=== PATIENT | female | born 1975 | race African-American/Black ===

== ENCOUNTER 2022-11-29 09:42 | Outpatient (CLI) | payer BC, SELFPAY ==
[2022-11-29 18:46] LABS: Basophils Percent Auto 0.7 % (0.2-1.2); Eosinophils Absolute Auto 0.2 K/mm3 (0-0.3); Eosinophils Percent Auto 2.8 % (0-4.4); Immature Granulocyte Absolute 0.01 K/mm3 (0.00-0.031); Immature Granulocyte Percent A 0.2 % (0-0.5); Lymphocytes Absolute Auto 1.52 K/mm3 (0.9-3.2); Lymphocytes Percent Auto 28.4 % (18.3-44.2); Mean Corpuscular HGB Conc 33.3 g/dl (32-36); Mean Corpuscular Hemoglobin 28.6 pg (26-34); Mean Corpuscular Volume 85.7 fl (80-100); Monocytes Absolute Auto 0.6 K/mm3 (0.1-0.6); Monocytes Percent Auto 10.8 % (2.6-8.5); Neutrophils Absolute Auto 3.1 K/mm3 (1.3-6.7); Neutrophils Percent Auto 57.1 % (45.5-73.1); Platelet Count Result 248 k/mm3 (150-375); Red Cell Distribution Width 12.6 % (11.5-14.5); White Blood Count 5.4 K/mm3 (4.5-10.0)
[2022-11-29 19:00] LABS: Alanine Aminotransferase 33 U/L (6-35); Albumin Level 3.9 g/dL (3.5-5.1); Alkaline Phosphatase 64 U/L (38-126); Anion Gap 1 mmol/L (8-16); Aspartate Amino Transferase 41 U/L (14-36); Bilirubin,Total 0.8 mg/dL (0.2-1.3); Blood Urea Nitrogen 10 mg/dL (7-17); Calcium 8.6 mg/dL (8.4-10.2); Carbon Dioxide 35 mmol/L (22-30); Chloride 102 mmol/L (98-107); Cholesterol 117 mg/dL (0-200); Estimated Glomerular Filt Rate > 60; Glucose 85 mg/dL (65-110); HDL Direct 52 mg/dL; Potassium 3.4 mmol/L (3.4-5.0); Sodium 138 mmol/L (137-145); Triglycerides 93 mg/dL (<150)
[2022-11-29 19:11] LABS: LDL Cholesterol Direct 37 mg/dL
[2022-11-29 19:33] LABS: Vitamin D 25 Hydroxy 44.4 ng/mL
== END 2022-11-29 09:43 | disposition home or self-care (01) ==
LOC: ANHGOSHLAB 09:44
PROVIDERS: PCP Family Medicine; Visit Provider Nurse Practitioner Family
DX: Z00.00 Encounter for general adult medical examination without abnormal findings (principal); I10 Essential (primary) hypertension; E55.9 Vitamin D deficiency, unspecified
CPT/HCPCS: 36415; 80053; 80061; 82306; 84443; 85025

== ENCOUNTER 2024-06-28 08:53 | Outpatient (CLI) | payer BC, SELFPAY ==
[2024-06-28 11:21] LABS: Basophils Percent Auto 0.7 % (0.2-1.2); Eosinophils Absolute Auto 0.2 K/mm3 (0-0.3); Eosinophils Percent Auto 3.6 % (0-4.4); Hematocrit 43.4 % (37.0-47.0); Hemoglobin 14.9 g/dL (12.0-15.0); Immature Granulocyte Absolute 0.01 K/mm3 (0.00-0.031); Immature Granulocyte Percent A 0.2 % (0-0.5); Lymphocytes Absolute Auto 1.58 K/mm3 (0.9-3.2); Lymphocytes Percent Auto 35.3 % (18.3-44.2); Mean Corpuscular HGB Conc 34.3 g/dl (32-36); Mean Corpuscular Hemoglobin 29.5 pg (26-34); Mean Corpuscular Volume 85.9 fl (80-100); Monocytes Absolute Auto 0.4 K/mm3 (0.1-0.6); Monocytes Percent Auto 9.6 % (2.6-8.5); Neutrophils Absolute Auto 2.3 K/mm3 (1.3-6.7); Neutrophils Percent Auto 50.6 % (45.5-73.1); Platelet Count Result 221 k/mm3 (150-375); Red Blood Count 5.05 M/mm3 (4.2-5.4); Red Cell Distribution Width 12.6 % (11.5-14.5); White Blood Count 4.5 K/mm3 (4.5-10.0)
[2024-06-28 11:51] LABS: Alanine Aminotransferase 11 U/L (6-35); Alkaline Phosphatase 59 U/L (38-126); Anion Gap 8 mmol/L (4-12); Aspartate Amino Transferase 18 U/L (14-36); Bilirubin,Total 1.1 mg/dL (0.2-1.3); Blood Urea Nitrogen 13 mg/dL (7-17); Calcium 8.9 mg/dL (8.4-10.2); Carbon Dioxide 28 mmol/L (22-30); Chloride 104 mmol/L (98-107); Cholesterol 127 mg/dL (0-200); Estimated Glomerular Filt Rate > 60; Glucose 90 mg/dL (65-110); HDL Direct 40 mg/dL; Potassium 3.6 mmol/L (3.4-5.0); Sodium 140 mmol/L (137-145); Triglycerides 59 mg/dL (<150)
[2024-06-28 11:56] LABS: Vitamin D 25 Hydroxy 36.2 ng/mL
[2024-06-28 12:03] LABS: LDL Cholesterol Direct 50 mg/dL
[2024-06-28 12:09] LABS: Thyroid Stimulating Hormone Reflex < 0.015 uIU/mL (0.465-4.68)
[2024-06-28 13:31] LABS: Free T4 Free Thyroxine Reflex 1.01 ng/dL (0.78-2.19)
[2024-06-28 15:00] LABS: Total Triiodothyronine (T3) 1.36 NG/ML (0.97-1.69)
== END 2024-06-28 08:54 | disposition home or self-care (01) ==
LOC: ANHGOSHLAB 08:54
PROVIDERS: PCP Nurse Practitioner Family; Visit Provider Nurse Practitioner Family
DX: Z00.00 Encounter for general adult medical examination without abnormal findings (principal); I10 Essential (primary) hypertension; E55.9 Vitamin D deficiency, unspecified
CPT/HCPCS: 36415; 80053; 80061; 82306; 84439; 84443; 84480; 85025

== ENCOUNTER 2024-08-10 00:32 | Day surgery (SDC) | payer BC, SELFPAY ==
[2024-07-23 08:34] VITALS: BMI 29.6
[2024-08-10 06:45] VITALS: BP 140/94; PULSE 94; RESP 18; TEMP 36.1; O2SAT 97; BMI 29.2
[2024-08-10] MEDS: LACTATED RINGERS 1,000 ML 150 ML IV CONT (07:12)
--- NOTE | 2024-08-10 07:45 | P.HP_ITS ---
H&P: HPI History of Present Illness Date/Time: 08/10/24 07:45 Chief Complaint: Screening for colorectal cancer Narrative: this is a 49-year-old woman who presents for colonoscopy. She has never had a colonoscopy before. She denies any hematochezia or melena. She denies any family history of colon cancer. She does deal with chronic constipation. Review of Systems Review of Systems: All systems reviewed & are unremarkable except as noted in HPI and below Constitutional: Constitutional: Denies chills, Denies fever(s), Denies headache(s) and Denies weight loss Eyes: Eyes: Denies change in vision ENT: Denies dizziness, Denies headache(s), Denies neck mass and Denies throat swelling Cardiovascular: Cardiovascular: Denies chest pain, Denies lightheadedness and Denies dyspnea Respiratory: Respiratory: Denies cough, Denies dyspnea and Denies wheezing Gastrointestinal: Gastrointestinal: Denies abdominal pain, Denies change in bowel habits, Denies nausea and Denies vomiting Genitourinary: Genitourinary: Denies hematuria and Denies dysuria Musculoskeletal: Musculoskeletal: Reports as per HPI Integumentary/Breasts: Skin/Breast: Reports as per HPI Neurologic: Denies dizziness and Denies headache(s) Allergic/Immunologic: Allergic/Immunologic: Denies throat swelling and Denies wheezing PMFSH Past Medical History Medical History Essential (primary) hypertension Family history of heart disease in male family member before age 55 Father of [place] at age 43 GERD without esophagitis History of 2019 novel coronavirus disease (COVID-19) Irritable bowel syndrome with constipation Screening mammogram for breast cancer Vitamin D deficiency Surgical History Surgical History Hx of section 1994, 2006 Hx of sinus surgery sinus surgeries x 4 [phone] Family History Family History Mother Hypertension Family history of emphysema Father Acute myocardial infarction Family history of heart disease in male family member before age 55 Sibling Lupus Other Diabetes mellitus Social History Social History Social History: Single., 2 children. 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 Caffeine- daily Smoking status: Never smoker Second hand tobacco smoke exposure: No Alcohol intake: current Substance use: never Substance use type: does not use Lack of Transportation: No Lack of Food: Never True Current Housing: I Have Housing Concerned About Future Housing: No Difficulty Paying Gas/Electric Bills: Decline to Answer Difficulty Paying for Meds: No Currently Unemployed: No Education: Trade/Vocational Certificate Difficulty w/ Childcare or Family Care: YES Living arrangements: with family Occupation/Education: occupation Gender identity (if verbalized by the patient): Female Spiritual care concerns: No Agree to blood products: Yes Meds Home Medications and Allergies Home Medications ?Medication ?Instructions ?Recorded ?Confirmed ?Type seumitw-htdafwhvfblmr-ugsahgsz 250 1 tablet PO Q4-6H PRN pain 07/26/21 08/10/24 History mg-250 mg-65 mg tablet (Excedrin Migraine) cetirizine 10 mg capsule (Zyrtec) 10 mg PO DAILY PRN allergy symptoms 07/26/21 08/10/24 History drospirenone (contraceptive) 4 mg 1 tablet PO DAILY 3 months #90 tabs 12/09/23 08/10/24 Rx (28) tablet (Slynd) famotidine 20 mg tablet 20 mg PO BID #180 tabs 01/15/24 08/10/24 Rx amlodipine 5 mg tablet 5 mg PO DAILY #90 tabs 06/28/24 08/10/24 Rx losartan 100 mg tablet 100 mg PO DAILY #90 tabs 07/29/24 08/10/24 Rx Allergies Allergy/AdvReac Type Severity Reaction Status Date / Time prasterone (DHEA) (From DHEA) Allergy Severe Anaphylaxis Verified 07/23/24 08:33 Vital Signs Vital Signs - 24 hr 08/10/24 06:45 Temperature 96.9 F L Pulse Rate 94 Respiratory Rate 18 Blood Pressure 140/94 H Pulse Oximetry 97 Oxygen Delivery Room Air Exam Const: General: no acute distress and alert Orientation/consciousness: patient oriented x3 HENMT: Head: normocephalic and atraumatic Ears: hearing grossly normal bilaterally Face/Nose/Sinus: Normal nares present Mouth: Yes Normal oral and palatal mucosa present Eyes: Periorbital: periorbital findings normal Sclera: sclerae normal EOM: EOMs intact bilaterally Neck: Neck: normal visual inspection, no lymphadenopathy and trachea midline Chest: Chest palpation & inspection: normal inspection of the chest Resp: Effort & Inspection: normal respiratory effort Auscultation: clear to auscultation bilaterally Cardio: Jugular venous distension: no JVD Rate: regular rate Rhythm: regular rhythm Heart sounds: S1 normal heart sound present and S2 normal heart sound present Peripheral pulses: Peripheral pulses 2+ throughout GI: Inspection: normal to inspection GI Palp: Yes Soft to palpation, No Tenderness to palpation present (GI), No Guarding due to palpation present (GI) and No Rebound tenderness present Percussion: Yes normal to percussion Auscultation: normal bowel sounds : General: Yes no CVA tenderness Back/Spine/Pelvis: Back: no CVA tenderness Neuro: General: patient oriented x3, no focal motor deficits and CN's II-XI intact bilaterally Cognition (Neuro): normal cognition Speech: normal speech Motor exam (neuro): 5/5 motor strength present throughout Extrem: General: capillary refill normal and no clubbing, cyanosis or edema Assessment and Plan Assessment and plan (1) Screening for colorectal cancer: Code(s): Z12.11 - Encounter for screening for malignant neoplasm of colon; Z12.12 - Encounter for screening for malignant neoplasm of rectum Status: Acute Assessment and Plan: I have recommended colonoscopy. I have discussed the procedure, risks, benefits, and alternatives. Questions were answered. Patient is agreeable to proceed.
--- NOTE | 2024-08-10 08:04 | P.PNAN_ITS ---
Anes - Initial Pre Proc Eval Procedure: Operation Date: 08/10/24 08:30 Proposed Procedures p Screening Colonoscopy - Ernesto Crandall DO Date/Time: 08/10/24 08:04 Surgeon: Ernesto Crandall DO Pre Op Diagnosis: Screening for malignant neoplasm of colon Patient Data Age: 49 Gender: F Height: 1.65 m Weight: 79.8 kg Last Vital Signs Temp 96.9 F L 08/10/24 06:45 Pulse 94 08/10/24 06:45 Resp 18 08/10/24 06:45 BP 140/94 H 08/10/24 06:45 Pulse Ox 97 08/10/24 06:45 O2 Del Method Room Air 08/10/24 06:45 Allergies Allergy/AdvReac Type Severity Reaction Status Date / Time prasterone (DHEA) (From DHEA) Allergy Severe Anaphylaxis Verified 07/23/24 08:33 Home Medications ?Medication ?Instructions ?Recorded ?Confirmed ?Type twoxajg-ltaczshzbikti-aemmyvhm 250 1 tablet PO Q4-6H PRN pain 07/26/21 08/10/24 History mg-250 mg-65 mg tablet (Excedrin Migraine) cetirizine 10 mg capsule (Zyrtec) 10 mg PO DAILY PRN allergy symptoms 07/26/21 08/10/24 History drospirenone (contraceptive) 4 mg 1 tablet PO DAILY 3 months #90 tabs 12/09/23 08/10/24 Rx (28) tablet (Slynd) famotidine 20 mg tablet 20 mg PO BID #180 tabs 01/15/24 08/10/24 Rx amlodipine 5 mg tablet 5 mg PO DAILY #90 tabs 06/28/24 08/10/24 Rx losartan 100 mg tablet 100 mg PO DAILY #90 tabs 07/29/24 08/10/24 Rx Patient hx anesthesia problems: none Family hx anesthesia problems: none Results Review: All pre-operative results and documents have been reviewed as part of the pre- operative evaluation. [facility] Past Medical History Medical History Essential (primary) hypertension Family history of heart disease in male family member before age 55 Father of [place] at age 43 GERD without esophagitis History of 2019 novel coronavirus disease (COVID-19) Irritable bowel syndrome with constipation Screening mammogram for breast cancer Vitamin D deficiency Surgical History Surgical History Hx of section 1994, 2006 Hx of sinus surgery sinus surgeries x 4 [phone] Family History Family History Mother Hypertension Family history of emphysema Father Acute myocardial infarction Family history of heart disease in male family member before age 55 Sibling Lupus Other Diabetes mellitus Social History Social History Social History: Single., 2 children. 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 Caffeine- daily Smoking status: Never smoker Second hand tobacco smoke exposure: No Alcohol intake: current Substance use: never Substance use type: does not use Lack of Transportation: No Lack of Food: Never True Current Housing: I Have Housing Concerned About Future Housing: No Difficulty Paying Gas/Electric Bills: Decline to Answer Difficulty Paying for Meds: No Currently Unemployed: No Education: Trade/Vocational Certificate Difficulty w/ Childcare or Family Care: YES Living arrangements: with family Occupation/Education: occupation Gender identity (if verbalized by the patient): Female Spiritual care concerns: No Agree to blood products: Yes Anes - Eval Final PreProcedure Day of Procedure 08/10/24 08:04 Patient weight: normal Heart: regular rate and rhythm Lungs: clear to auscultation Airway: Mallampati scale class II Neurological: alert and oriented Last oral intake: >/= 8 hours ASA classification: II Emergent: no Anesthetic plan: proceed Anesthesia type and monitoring: general GIVS and standard monitoring Results Review: All pre-operative results and documents have been reviewed as part of the pre-operative evaluation. Informed Consent: The patient's anesthetic plan and its attendant risks and benefits were discussed with the patient/family/POA. Questions were solicited and answers provided to the satisfaction of the patient/family/POA.
[2024-08-10 08:14] VITALS: BP 113/79; PULSE 83; RESP 14; O2SAT 99
[2024-08-10 08:14] LABS: BEDSIDEPREGUCG Negative (Negative)
[2024-08-10 08:24] VITALS: BP 121/85; PULSE 85; RESP 14; O2SAT 99
[2024-08-10 08:34] VITALS: BP 126/94; PULSE 72; RESP 16; O2SAT 99
--- OUTSIDE RECORDS SUMMARY | 2024-08-16 09:41 | XMS_ITS | Patient Health Record ---
Author Organization [facility] Address [address] [place], [place] [id number] Care Team Providers Care Sweatband Separator Name Role Phone FrediNeel pérez Primary Care Provider Zainab Estrada [phone] REASON FOR REFERRAL No Information MEDICATIONS Medication SIG (Take, Route, Fr equency, Duration) Notes Start Date End Date Status raNITIdine Active Augmentin 875 mg-125 mg 1 tab(s) orally every 12 hours for 7 days 10/30/2020 Active cephalexin 500 mg 1 cap(s) orally ever y 12 hours for 5 days 04/23/2024 Active Keflex 500 mg 1 cap(s) orally QID for 7 days 06/26/2021 Active HCTZ 25mg 0.5 tab(s) orally once a day Active PROBLEMS Problem Type ICD Code Onset Dates Problem Status W/U Status Risk SNOMED Code Notes Problem Vitamin D deficiency (E55.9) Active confirmed 08736891 Problem Polyarthralgia (M25.50) Active confirmed 52604579 Problem Suspected COVID-19 virus infection (Z20.828) Active confirmed 887392639 Problem Contact with and (suspected) exposure to other viral communicable diseases (Z20.828) Active confirmed [id number] Encounters Encounter Location Date Provider Diagnosis [facility] [address], [facility] [address] [place], [place] [id number] 04/23/2024 Zainab Saunders PLAN OF TREATMENT Pending Test Test Name Order Date X ray : Hand, left 07/30/2017 X ray : Hand, right 07/30/2017 X ray : Knee, left 3 views 06/01/2013 Covid PCR Detection Naso-pharynx 020 Covid PCR Detection Naso-pharynx 021 Insurance Providers Payer Name Payer Address Payer Phone Subscriber Number Group Number Insured Name Patient Relationship to Insured Coverage Start Date Coverage End Date [place] [employer] [place] [address] [address] [place] [address] [id number] Edith Vargas Self - patient is the insured 7 MEDICAL (GENERAL) HISTORY Medical History History ICD Code broken toe chicken pox knee pain migraine headache Neck pain sinus problems sinusitis seasonal allergies Arthritis blood transfusion broken left elbow bruises easily ear ache dizziness Double vision fatigue flatulence gall bladder disease headache heartburn lightheadedness miscarriage Ringing in ears tinnitus vision - halos
--- OUTSIDE RECORDS SUMMARY | 2024-08-16 09:41 | XMS_ITS ---
Author Organization [facility] Address [address] [place], [place] [id number] Care Team Providers Care Survey Research Associate Name Role Phone Fredi, Jean Primary Care Provider Zainab Estrada [phone] MEDICATIONS Medication SIG (Take, Route, Fr equency, Duration) Notes Start Date End Date Status cephalexin 500 mg 1 cap(s) orally ever y 12 hours for 5 days 04/23/2024 Active Encounters Encounter Location Date Provider Diagnosis [facility] [address] [place], [place] [id number] 04/23/2024 Zainab Saunders PLAN OF TREATMENT Medication Medication Name Sig Start Date Stop Date Notes cephalexin 500 mg 1 cap(s) orally ever y 12 hours for 5 days 04/23/2024
--- OUTSIDE RECORDS SUMMARY | 2024-08-16 09:43 | XMS_ITS | Referral Summary ---
Author Organization [facility] Address [address] [place] [address] Care Team Providers Care Voting Machine Repairer Name Role Phone Mariaa Martínez RAEGAN-POLLUTION CONTROL TECHNICIAN Primary Care Provider Source Comments [facility],non-owned Affiliates and Associated Physician Practices is amultiple site organization consisting of ambulatory clinics and hospital sitesin [place], [place], [place] and [place]. This disclosure is being madepursuant to the Care Everywhere program and may not contain all information available regarding this patient. Last updated 18.[facility] Encounters Date Type Department Care Team Description 07/16/2024 Travel 07/16/2024 2:30 PM BAIL BONDING AGENT Office Visit [facility] - Endocrinology [address] [place] [address] Laurie Ashby MD Abnormal TSH (Primary Dx); Hyperthyroidism from Last 3 Months Allergies No known active allergies Medications * Be aware that medications may not be up to date on this document. Alwaysverify current medications with the patient. Medication Sig Dispensed Refills Start Date End Date Status amLODIPine (Norvasc) 5 MG tablet Take 1 (one) tablet by mouth once daily 06/28/2024 Active Slynd 4 MG TABS tablet Take 1 (one) tablet by mouth once daily 07/10/2024 Active famotidine (Pepcid) 20 MG tablet Take 1 (one) tablet by mouth once daily 01/31/2024 Active losartan (Cozaar) 100 MG tablet Take 0.5 (one-half) tablet by mouth once daily 04/14/2024 Active Active Problems Problem Noted Date Diagnosed Date Polyarthralgia 07/16/2024 Social History Tobacco Use Types Packs/Day Years Used Date Smoking Tobacco: Never Smokeless Tobacco: Never Tobacco Cessation:Counseling Given: No PHQ-2 Answer Date Recorded Patient Health Questionnaire-2 Score 0 07/16/2024 Sex and Gender Information Value Date Recorded Sex Assigned at Not on file Gender Identity Not on file Sexual Orientation Not on file Last Filed Vital Signs Vital Sign Reading Time Taken Comments Blood Pressure 122/90 07/16/2024 2:25 PM BAIL BONDING AGENT Pulse 83 07/16/2024 2:25 PM BAIL BONDING AGENT Temperature - - Respiratory Rate - - Oxygen Saturation 97% 07/16/2024 2:25 PM BAIL BONDING AGENT Inhaled Oxygen Concentration - - Weight 81.6 kg (180 lb) 07/16/2024 2:25 PM BAIL BONDING AGENT Height 166.4 cm (5' 5.5 ) 07/16/2024 2:25 PM BAIL BONDING AGENT Body Mass Index 29.5 07/16/2024 2:25 PM BAIL BONDING AGENT Plan of Treatment Upcoming Encounters Date Type Department Care Team (Late st Contact Info) Description 11/19/2024 2:00 PM CDT Office Visit [facility] - Endocrinology [address] [place] [id number] Laurie Ashby MD [address] [place] [address] Procedures Procedure Name Priority Date/Time Associated Diagnosis Comments THYROID PEROXIDASE ANTIBODY Routine 07/27/2024 9:05 AM BAIL BONDING AGENT Hyperthyroidism Abnormal TSH TSH RECEPTOR ANTIBODY Routine 07/27/2024 9:05 AM BAIL BONDING AGENT Hyperthyroidism Abnormal TSH THYROID STIMULATING IMMUNOGLOBULIN (TSI) Routine 07/27/2024 9:05 AM BAIL BONDING AGENT Hyperthyroidism Abnormal TSH T3 TOTAL Routine 07/27/2024 9:05 AM BAIL BONDING AGENT Hyperthyroidism Abnormal TSH T4 FREE Routine 07/27/2024 9:05 AM BAIL BONDING AGENT Hyperthyroidism Abnormal TSH TSH Routine 07/27/2024 9:05 AM BAIL BONDING AGENT Hyperthyroidism Abnormal TSH from Last 3 Months Results * THYROID PEROXIDASE ANTIBODY (07/27/2024 9:05 AM BAIL BONDING AGENT) Thyroid Peroxidase TPO Antibody 11 0 - 34 IU/mL [facility] ACCOUNT BILL Blood BLOOD SPECIMEN / Unknown 07/27/2024 9:05 AM BAIL BONDING AGENT 07/27/2024 Narrative [facility] ACCOUNT BILL - 07/28/2024 7:07 AM BAIL BONDING AGENT Performed at: ??01 - [facility] [address] ??[id number] Clinical Psychiatrist: Spencer Casillas PhD, Phone: ??[phone] Laurie Ashby MD LAB - CHEMISTRY KAREN KNOX Performing Organization Address [facility] Co de Phone Number [facility] ACCOUNT BILL [address] [place] [phone] * THYROID STIMULATING IMMUNOGLOBULIN (TSI) (07/27/2024 9:05 AM BAIL BONDING AGENT) Thyroid Stimulating Immunoglobulin <0.10 0.00 - 0.55 IU/L [facility] ACCOUNT BILL Blood BLOOD SPECIMEN / Unknown 07/27/2024 9:05 AM BAIL BONDING AGENT 07/27/2024 Narrative [facility] ACCOUNT BILL - 07/30/2024 8:08 AM BAIL BONDING AGENT Performed at: ??01 - [facility] [address] ??[id number] Clinical Psychiatrist: Rowan Taylor MD, Phone: ??[phone] Laurie Ashby MD LAB - CHEMISTRY KAREN KNOX [facility] ACCOUNT BILL [address] [place] [address] * TSH RECEPTOR ANTIBODY (07/27/2024 9:05 AM BAIL BONDING AGENT) Thyrotropin Receptor Antibody <1.10 0.00 - 1.75 IU/L [facility] ACCOUNT BILL Blood BLOOD SPECIMEN / Unknown 07/27/2024 9:05 AM BAIL BONDING AGENT 07/27/2024 Narrative [facility] ACCOUNT BILL - 07/30/2024 7:07 AM BAIL BONDING AGENT Performed at: ??01 - [facility] [address] ??[id number] Clinical Psychiatrist: Rowan Taylor MD, Phone: ??[phone] Laurie Ashby MD LAB - CHEMISTRY KAREN KNOX [facility] ACCOUNT BILL [address] [place] [address] * TSH (07/27/2024 9:05 AM BAIL BONDING AGENT) TSH 2.390 0.450 - 4.500 uIU/mL [facility] ACCOUNT BILL Blood BLOOD SPECIMEN / Unknown 07/27/2024 9:05 AM BAIL BONDING AGENT 07/27/2024 Narrative [facility] ACCOUNT BILL - 07/28/2024 7:07 AM BAIL BONDING AGENT Performed at: ??01 - [facility] [address] ??[id number] Clinical Psychiatrist: Spencer Casillas PhD, Phone: ??[phone] Laurie Ashby MD LAB - CHEMISTRY KAREN KNOX Performing Organization Address City/[facility]/ZIP Co de Phone Number [facility] ACCOUNT BILL [address] [place] [address] * T4 FREE (07/27/2024 9:05 AM BAIL BONDING AGENT) T4 Free 1.09 0.82 - 1.77 ng/dL [facility] ACCOUNT BILL Blood BLOOD SPECIMEN / Unknown 07/27/2024 9:05 AM BAIL BONDING AGENT 07/27/2024 Narrative [facility] ACCOUNT BILL - 07/28/2024 7:07 AM BAIL BONDING AGENT Performed at: ??01 - [facility] [place] [id number] [place], [place] ??[id number] Clinical Psychiatrist: Spencer Casillas PhD, Phone: ??[phone] Laurie Ashby MD LAB - CHEMISTRY KAREN KNOX [facility] ACCOUNT BILL [address] [place] [address] * T3 TOTAL (07/27/2024 9:05 AM BAIL BONDING AGENT) T3 Total 144 71 - 180 ng/dL [facility] ACCOUNT BILL Blood BLOOD SPECIMEN / Unknown 07/27/2024 9:05 AM BAIL BONDING AGENT 07/27/2024 Narrative [facility] ACCOUNT BILL - 07/28/2024 9:07 AM BAIL BONDING AGENT Performed at: ??01 - [facility] [place] [address] [place], [place] ??[id number] Clinical Psychiatrist: Spencer Casillas PhD, Phone: ??[phone] Laurie Ashby MD LAB - CHEMISTRY KAREN KNOX [facility] ACCOUNT BILL [address] [place] [address] from Last 3 Months Care Teams Voting Machine Repairer Relationship Specialty Start Date End Date Mariaa Martínez, RAEGAN-POLLUTION CONTROL TECHNICIAN [address] [place] [address] PCP - General Nurse Practitioner Family 07/16/24
--- OUTSIDE RECORDS SUMMARY | 2024-08-16 09:43 | XMS_ITS | Encounter Summary ---
Author Organization [facility] Address [address] [place] [address] Phone Care Team Providers Care Insurance Professional Name Role Phone No, Physician Primary Care Provider [phone] Reason for Referral * Consultation (Routine) - Pending Review Specialty Diagnoses / Procedures Referred By Contfelix t Referred To Contact Physical Therapy Diagnoses Chronic [place] [address] [place] [address] Phone: tel: fax: External Order Referral ID Status Reason Start Date Expiration Date Visits Requested Visits Authorized [id number] Pending Review Evaluate and Treat 04/14/2024 05/14/2025 24 24 Question Answer PTRFR PT Evaluate and Treat Therapy options discussed with patient? Yes Location provided for therapy services is: Patient requested/Patient preferred Please select the performing region: External Order [171] # of visits: 24 Comments [facility] Edith Jenkins 1975 04/14/24 Right knee osteochondritis dissecans Physical Therapy Evaluation and Treatment Twice Weekly for 6 Weeks Quadriceps and hamstring strengthening exercises ROM Modalities prn Home exercise program For all PT reports that require a signature-please fax to [phone] For all other PT progress notes-please fax to [phone] Gunner Sims MD Reason for Visit * Reason Comments Follow-up Encounter Details Date Type Department Care Team (Late st Contact Info) Description 04/14/2024 9:10 AM CDT Office Visit [facility] Orthopaedic Surgery [address] [place] [address] [place] [address] [facility] [address] [place] [address] Chronic pain of right knee (Primary Dx) Social History Tobacco Use Types Packs/Day Years Used Date Smoking Tobacco: Never Personal Safety Answer Date Recorded Getting School Help Needed Not on file 03/05 Comments Unknown Sex and Gender Information Value Date Recorded Sex Assigned at Not on file Legal Sex Female 6:00 AM PROFESSOR OF FOOD BIOCHEMISTRY Gender Identity Not on file Sexual Orientation Not on file documented as of this encounter Progress Notes * Gunner Sims MD - 04/14/2024 9:10 AM CDT Images from the original note were not included. ESTABLISHED PATIENT VISIT INTERIM HISTORY: She returns following MRI that showed a chronic healed osteochondritis dissecans lesion of the medial femoral condyle. There was also irregularity of the overlying cartilage with fissuring. There wasminimal subchondral edema and no evidence of a loose body. PHYSICAL EXAMINATION: Her physical examination is unchanged. REVIEW OF IMAGING: Her MRI was reviewed and consistent with the above findings. 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 She has catching proximally once per week but has diffuse pain with standing prolonged sitting and walking. She has tried [id number] NSAIDs with no relief. I recommended physical therapy for quadriceps hamstring strengthening. In addition we will do a intra-articular corticosteroid injection. She apparently had this in the past and was helpful to address her pain. She is to avoid prolonged bent knee activities if possible. She is return over the next 8 weeks or so should shehave no improvement with this symptoms or should her mechanical catching worsened in which case a ch ondroplasty be recommended. I was present for the critical portion of the history, physical examination, and participated in the radiographic review and medical decision making for this patient. I agree with the findings in thereport of the above residence/fellow dictating using [employer] Direct software. Professor of Orthopaedic Surgery Director, Sports Medicine Fellowship [facility] Orthopaedics documented in this encounter Plan of Treatment Scheduled Referrals Name Type Priority Associated Diagnoses Order Schedule Ambulatory referral order to Physical Therapy - Outpatient Referral Routine Chronic pain of right knee Expected: 04/28/2024 (Approximate), Expires: 04/14/2025 documented as of this encounter Visit Diagnoses Diagnosis Chronic pain of right knee- Primary documented in this encounter Care Teams Insurance Professional Relationship Specialty Start Date End Date No, Physician PCP - General 03/05/24 documented as of this encounter
--- OUTSIDE RECORDS SUMMARY | 2024-08-16 09:43 | XMS_ITS | Encounter Summary ---
Author Organization [facility] Address [address] [place] [address] Phone Care Team Providers Care Community Planning Technician Name Role Phone No, Physician Primary Care Provider [phone] Encounter Details Date Type Department Care Team (Late st Contact Info) Description 04/15/2024 Orders Only [facility] Orthopaedic Surgery [address] [place] [address] [place] [address] [facility] [address] [place] [address] Social History Tobacco Use Types Packs/Day Years Used Date Smoking Tobacco: Never Personal Safety Answer Date Recorded Getting School Help Needed Not on file 03/05 Comments Unknown Sex and Gender Information Value Date Recorded Sex Assigned at Not on file 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
--- OUTSIDE RECORDS SUMMARY | 2024-08-16 09:43 | XMS_ITS | Referral Summary ---
Author Organization [facility] Address [address] [place] [address] Care Team Providers Care Hospital Mortician Name Role Phone No, Physician Primary Care Provider [phone] Allergies No known active allergies Medications losartan (COZAAR) 100 mg tablet 01/16/2024 Active atenoloL (TENORMIN) 50 mg tablet 01/30/2024 Active famotidine (PEPCID) 20 mg tablet 01/31/2024 Active Slynd tablet tablet 03/16/2024 Active meloxicam (MOBIC) 15 mg tablet Take 1 tablet (15 mg total) by mouth daily 30 tablet 11 04/15/2024 Active Active Problems No known active problems Social History Tobacco Use Types Packs/Day Years Used Date Smoking Tobacco: Never Tobacco Cessation:Counseling Given: Not Answered Personal Safety Answer Date Recorded Getting School Help Needed Not on file 03/05 Comments Unknown Sex and Gender Information Value Date Recorded Sex Assigned at Not on file 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
--- OUTSIDE RECORDS SUMMARY | 2024-08-16 09:43 | XMS_ITS | Clinical Summary ---
Author Organization [facility] Address [address] [place] [address] Care Team Providers Care Instructional Technology Director Name Role Phone Mariaa Martínez RAEGAN-AGRICULTURAL CHEMIST Primary Care Provider Source Comments [facility],non-owned Affiliates and Associated Physician Practices is amultiple site organization consisting of ambulatory clinics and hospital sitesin [place], [place], [place] and [place]. This disclosure is being madepursuant to the Care Everywhere program and may not contain all information available regarding this patient. Last updated 18.[facility] Allergies No known active allergies Medications * [...] Problem Noted Date Diagnosed Date Polyarthralgia 07/16/2024 Encounters Date Type Department Care Team Description 07/16/2024 2:30 PM CLEAN ENERGY POLICY ANALYST Office Visit [facility] - Endocrinology [address] [place] [id number] Laurie Ashby MD Abnormal TSH (Primary Dx); Hyperthyroidism 07/16/2024 Travel from Last 3 Months Social History Tobacco Use Types Packs/Day Years [...] Comments Blood Pressure 122/90 07/16/2024 2:25 PM CLEAN ENERGY POLICY ANALYST Pulse 83 07/16/2024 2:25 PM CLEAN ENERGY POLICY ANALYST Temperature - - Respiratory Rate - - Oxygen Saturation 97% 07/16/2024 2:25 PM CLEAN ENERGY POLICY ANALYST Inhaled Oxygen Concentration - - Weight 81.6 kg (180 lb) 07/16/2024 2:25 PM CLEAN ENERGY POLICY ANALYST Height 166.4 cm (5' 5.5 ) 07/16/2024 2:25 PM CLEAN ENERGY POLICY ANALYST Body Mass Index 29.5 07/16/2024 2:25 PM CLEAN ENERGY POLICY ANALYST Plan of Treatment Upcoming Encounters Date Type Department Care Team (Late st Contact Info) Description 11/19/2024 2:00 PM CDT Office Visit [facility] - Endocrinology [address] [place] [address] Laurie Ashby MD [address] [place] [address] Health Maintenance Due Date Last Done Comments COLOGUARD (AGES 45-75) - COL ON CA SCREENING 1976 COLON MONITORING 1976 COLONOSCOPY - COLON CA SCREENING 1976 CT COLONOGRAPHY - COLON CA SCREENING 1976 Colorectal Cancer Screening 1976 FIT - COLON CA SCREENING 1976 FLEX SIG - COLON CA SCREENING 1976 LIPID TESTING 1976 MAMMOGRAM 1976 PAP SMEAR 1976 HIV SCREENING 1991 HEPATITIS C SCREENING 08/02/1994 DTAP/TDAP/TD VACCINES (1 - Tdap) 1995 HEPATITIS B VACCINE (1 of 3 - 19+ 3-dose series) 1995 COVID-19 VACCINE (2023-2 5 season) 2024 11/02/2020, 10/12/2020 INFLUENZA VACCINE (#1) 2024 SCREENING FOR DIABETES 07/16/2024 DEPRESSION SCREENING 08/04/2024 07/16/2024 ZOSTER VACCINE (1 of 2) 2026 HIB VACCINE Aged Out No longer eligi ble based on patient's age to complete this topic HPV VACCINE Aged Out No longer eligi ble based on patient's age to complete this topic MENINGOCOCCAL VACCINE Aged Out No nancy dar eligible based on patient's age to complete this topic PNEUMOCOCCAL VACCINE Aged Out No long er eligible based on patient's age to complete this topic Procedures Procedure Name Priority Date/Time Associated Diagnosis Comments THYROID PEROXIDASE ANTIBODY Routine 07/27/2024 9:05 AM CLEAN ENERGY POLICY ANALYST Hyperthyroidism Abnormal TSH TSH RECEPTOR ANTIBODY Routine 07/27/2024 9:05 AM CLEAN ENERGY POLICY ANALYST Hyperthyroidism Abnormal TSH THYROID STIMULATING IMMUNOGLOBULIN (TSI) Routine 07/27/2024 9:05 AM CLEAN ENERGY POLICY ANALYST Hyperthyroidism Abnormal TSH T3 TOTAL Routine 07/27/2024 9:05 AM CLEAN ENERGY POLICY ANALYST Hyperthyroidism Abnormal TSH T4 FREE Routine 07/27/2024 9:05 AM CLEAN ENERGY POLICY ANALYST Hyperthyroidism Abnormal TSH TSH Routine 07/27/2024 9:05 AM CLEAN ENERGY POLICY ANALYST Hyperthyroidism Abnormal TSH from Last 3 Months Results * THYROID PEROXIDASE ANTIBODY (07/27/2024 9:05 AM CLEAN ENERGY POLICY ANALYST) Thyroid Peroxidase TPO Antibody 11 0 - 34 IU/mL [facility] ACCOUNT BILL Blood BLOOD SPECIMEN / Unknown 07/27/2024 9:05 AM CLEAN ENERGY POLICY ANALYST 07/27/2024 Narrative [facility] ACCOUNT BILL - 07/28/2024 7:07 AM CLEAN ENERGY POLICY ANALYST Performed at: ??01 - [facility] [address] ??[id number] Senior Clinical Consultant: Spencer Casillas PhD, Phone: ??[phone] Laurie Ashby MD LAB - CHEMISTRY KAREN KNOX [facility] ACCOUNT BILL [address] [place] [address] * THYROID STIMULATING IMMUNOGLOBULIN (TSI) (07/27/2024 9:05 AM CLEAN ENERGY POLICY ANALYST) Thyroid Stimulating Immunoglobulin <0.10 0.00 - 0.55 IU/L [facility] ACCOUNT BILL Blood BLOOD SPECIMEN / Unknown 07/27/2024 9:05 AM CLEAN ENERGY POLICY ANALYST 07/27/2024 Narrative [facility] ACCOUNT BILL - 07/30/2024 8:08 AM CLEAN ENERGY POLICY ANALYST Performed at: ??01 - [facility] ??[id number] Senior Clinical Consultant: Rowan Taylor MD, Phone: ??[phone] Laurie Ashby MD LAB - CHEMISTRY KAREN KNOX Performing Organization Address [facility] Co de Phone Number [facility] ACCOUNT BILL [address] [place] [address] * TSH RECEPTOR ANTIBODY (07/27/2024 9:05 AM CLEAN ENERGY POLICY ANALYST) Thyrotropin Receptor Antibody <1.10 0.00 - 1.75 IU/L [facility] ACCOUNT BILL Blood BLOOD SPECIMEN / Unknown 07/27/2024 9:05 AM CLEAN ENERGY POLICY ANALYST 07/27/2024 Narrative [facility] ACCOUNT BILL - 07/30/2024 7:07 AM CLEAN ENERGY POLICY ANALYST Performed at: ??01 - [facility] ??[id number] Senior Clinical Consultant: Rowan Taylor MD, Phone: ??[phone] Laurie Ashby MD LAB - CHEMISTRY KAREN KNOX Performing Organization Address City/[facility]/ZIP Co de Phone Number [facility] ACCOUNT BILL [address] [place] [address] * TSH (07/27/2024 9:05 AM CLEAN ENERGY POLICY ANALYST) TSH 2.390 0.450 - 4.500 uIU/mL [facility] ACCOUNT BILL Blood BLOOD SPECIMEN / Unknown 07/27/2024 9:05 AM CLEAN ENERGY POLICY ANALYST 07/27/2024 Narrative [facility] ACCOUNT BILL - 07/28/2024 7:07 AM CLEAN ENERGY POLICY ANALYST Performed at: ??01 - [facility] [address] ??[id number] Senior Clinical Consultant: Spencer Casillas PhD, Phone: ??[phone] Laurie Ashby MD LAB - CHEMISTRY KAREN KNOX Performing Organization Address City/[facility]/ZIP Co de Phone Number [facility] ACCOUNT BILL [address] [place] [address] * T4 FREE (07/27/2024 9:05 AM CLEAN ENERGY POLICY ANALYST) T4 Free 1.09 0.82 - 1.77 ng/dL [facility] ACCOUNT BILL Blood BLOOD SPECIMEN / Unknown 07/27/2024 9:05 AM CLEAN ENERGY POLICY ANALYST 07/27/2024 Narrative [facility] ACCOUNT BILL - 07/28/2024 7:07 AM CLEAN ENERGY POLICY ANALYST Performed at: ??01 - [facility] [address] ??[id number] Senior Clinical Consultant: Spencer Casillas PhD, Phone: ??[phone] Laurie Ashby MD LAB - CHEMISTRY KAREN KNOX Performing Organization Address [facility] [[email or web address]] de Phone Number [facility] ACCOUNT BILL [address] [place] [address] * T3 TOTAL (07/27/2024 9:05 AM CLEAN ENERGY POLICY ANALYST) T3 Total 144 71 - 180 ng/dL [facility] ACCOUNT BILL Blood BLOOD SPECIMEN / Unknown 07/27/2024 9:05 AM CLEAN ENERGY POLICY ANALYST 07/27/2024 Narrative [facility] ACCOUNT BILL - 07/28/2024 9:07 AM CLEAN ENERGY POLICY ANALYST Performed at: ??01 - [facility] [address] ??[id number] Senior Clinical Consultant: Spencer Casillas PhD, Phone: ??[phone] Laurie Ashby MD LAB - CHEMISTRY KAREN KNOX Performing Organization Address City/[facility]/ZIP Co de Phone Number [facility] ACCOUNT BILL [address] [place] [address] from Last 3 Months Care Teams Instructional Technology Director Relationship Specialty Start Date End Date Mariaa Martínez, PROPERTY CARETAKER-AGRICULTURAL CHEMIST [address] [place] [address] PCP - General Nurse Practitioner Family 07/16/24
--- OUTSIDE RECORDS SUMMARY | 2024-08-16 09:43 | XMS_ITS | Encounter Summary ---
Author Organization [facility] [place] Address [address] [place] [address] Phone Care Team Providers Care Luggage Attendant Name Role Phone No, Physician Primary Care Provider [phone] Encounter Details Date Type Department Care Team (Late st Contact Info) Description 03/25/2024 Telephone [facility] Orthopaedic Surgery [address] [place] [address] [place] [address] [facility] [place], [place] [id number] Social History Tobacco Use Types Packs/Day Years Used Date Smoking Tobacco: Never Personal Safety Answer Date Recorded Getting School Help Needed Not on file 03/05 Comments Unknown Sex and Gender Information Value Date Recorded Sex Assigned at Not on file 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 Gender Identity Not on file Sexual Orientation Not on file documented as of this encounter Miscellaneous Notes * Telephone Encounter - Gunner Ozuna - 03/25/2024 4:19 PM CDT This patient is going to get her MRI at: [facility] [address] [address] NPI- [id number] Tax ID- [id number] [phone] Sent this info to [employer] team to work on auth documented in this encounter Plan of Treatment Not on file documented as of this encounter Visit Diagnoses Not on filedocumented in this encounter Care Teams Luggage Attendant Relationship Specialty Start Date End Date No, Physician PCP - General 03/05/24 documented as of this encounter
--- OUTSIDE RECORDS SUMMARY | 2024-08-16 09:43 | XMS_ITS | Encounter Summary ---
Author Organization [facility] Address [address] [place] [address] Care Team Providers Care Banking Paralegal Name Role Phone No, Physician Primary Care Provider [phone] Reason for Referral * Diagnostic Imaging (Routine) - Closed Specialty Diagnoses / Procedures Referred By Chinmay barboza Referred To Contact Diagnoses Chronic pain of right knee Procedures XR Knee [place] [address] [place] [address] Phone: tel: fax: [facility] Referral ID Status Reason Start Date Expiration Date Visits Re quested Visits Authorized [id number] Closed 03/17/2024 04/16/2025 1 1 Reason for Visit * Diagnostic Imaging (Routine) - Closed Specialty Diagnoses / Procedures Referred By Chinmay barboza Referred To Contact Diagnoses Chronic pain of right knee Procedures XR Knee [place] [address] [place] [address] Phone: tel: fax: [facility] Referral ID Status Reason Start Date Expiration Date Visits Re quested Visits Authorized [id number] Closed 03/17/2024 04/16/2025 1 1 Encounter Details Date Type Department Care Team (Latest Contact Info) Description 03/18/2024 8:48 AM CDT - 03/18/2024 11:59 PM CDT Hospital Encounter [facility] [address] [place] [address] Chronic pain of right knee Discharge Disposition: Discharge to home or self care Social History Tobacco Use Types Packs/Day Years Used Date Smoking Tobacco: Never Personal Safety Answer Date Recorded Getting School Help Needed Not on file 03/05 Comments Unknown Sex and Gender Information Value Date Recorded Sex Assigned at Not on file 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 Gender Identity Not on file Sexual Orientation Not on file documented as of this encounter Medications at Time of Discharge Medication Sig Dispense Quantity Refills Last Filled Start D ate End Date atenoloL (TENORMIN) 50 mg tablet 01/30/2024 famotidine (PEPCID) 20 mg tablet 01/31/2024 losartan (COZAAR) 100 mg tablet 01/16/2024 Slynd tablet tablet 03/16/2024 documented as of this encounter Discharge Disposition Disposition Code Departure Means Destination Discharge to home or self care documented in this encounter Plan of Treatment Not on file documented as of this encounter Procedures Procedure Name Priority Date/Time Associated Diagnosis Comments XR KNEE RIGHT 3 VIEWS Schedule Routine, Read Routine (OP Routine) 03/18/2024 9:01 AM CDT Chronic pain of right knee documented in this encounter Results * XR Knee Right 3 View (03/18/2024 9:01 AM CDT) Anatomical Region Laterality Modality Lower Extremities, Knee Right Computed Radiography 03/18/2024 9:41 AM CDT Impressions 03/18/2024 9:59 AM CDT 1. ??Potentially unstable osteochondral lesion of the right medial femoral condyle with associated suprapatellar loose bodies. Dictated by: Gladys Yarbrough M.D. The radiology attending physician has personally reviewed this study, and had reviewed and/or edited this written report and agrees with it. Electronically signed by: Yan Dailey M.D. Narrative 03/18/2024 9:59 AM CDT EXAMINATION: XR KNEE RIGHT 3 VIEWS HISTORY: 48-year-old woman, chronic right knee pain. FINDINGS: 3 views of the right knee were obtained, without comparison. The alignment is normal. ??There are no acute fractures. ??Joint spaces are preserved. There is a large osteochondral lesion of the medial femoral condyle, measuring approximately 2.2 cm in maximum dimension. ??This is associated with a small loose bodies in the suprapatellar region, concerning for instability. Procedure Note Yan Dailey MD PhD - 03/18/2024 EXAMINATION: XR KNEE RIGHT 3 VIEWS HISTORY: 48-year-old woman, chronic right knee pain. FINDINGS: 3 views of the right knee were obtained, without comparison. The alignment is normal. There are no acute fractures. Joint spaces are preserved. There is a large osteochondral lesion of the medial femoral condyle, measuring approximately 2.2 cm in maximum dimension. This is associated with a small loose bodies in the suprapatellar region, concerning for instability. IMPRESSION: 1. Potentially unstable osteochondral lesion of the right medial femoral condyle with associated suprapatellar loose bodies. Dictated by: Gladys Yarbrough M.D. The radiology attending physician has personally reviewed this study, and had reviewed and/or edited this written report and agrees with it. Electronically signed by: Yan Dailey M.D. us Gunner Sims MD IMG XR PROCEDURES Final Res ult documented in this encounter Visit Diagnoses Diagnosis Chronic pain of right knee documented in this encounter Care Teams Banking Paralegal Relationship Specialty Start Date End Date No, Physician PCP - General 03/05/24 documented as of this encounter
--- OUTSIDE RECORDS SUMMARY | 2024-08-16 09:43 | XMS_ITS | Encounter Summary ---
Author Organization [facility] Address [address] [place] [address] Phone Care Team Providers Care Program Engagement Director Name Role Phone No, Physician Primary Care Provider [phone] Reason for Referral * MRI/CAT/PET Scan (Routine) - Closed Specialty Diagnoses / Procedures Referred By Contac t Referred To Contact Radiology Diagnoses Chronic pain of right knee Procedures [place] [address] [place] [address] Phone: tel: fax: [facility] Referral ID Status Reason Start Date Expiration Date Visits Re quested Visits Authorized [id number] Closed 03/18/2024 04/16/2024 1 1 * Diagnostic Imaging (Routine) - Closed Specialty Diagnoses / Procedures Referred By Contac t Referred To Contact Diagnoses Chronic pain of right knee Procedures XR Knee [place] [address] [place] [address] Phone: tel: fax: [facility] Referral ID Status Reason Start Date Expiration Date Visits Re quested Visits Authorized [id number] Closed 03/17/2024 04/16/2025 1 1 Reason for Visit * Reason Comments Pain Encounter Details Date Type Department Care Team (Late st Contact Info) Description 03/18/2024 8:40 AM CDT Office Visit [facility] Orthopaedic Surgery [address] [place] [address] [place] [address] [place] [address] Chronic pain of right knee (Primary Dx) Social History Tobacco Use Types Packs/Day Years Used Date Smoking Tobacco: Never Tobacco Cessation:Counseling Given: Not Answered Personal Safety Answer Date Recorded Getting School Help Needed Not on file 03/05 Comments Unknown Sex and Gender Information Value Date Recorded Sex Assigned at Not on file Legal Sex Female 6:00 AM CERTIFIED ENERGY MANAGER Gender Identity Not on file Sexual Orientation Not on file documented as of this encounter Last Filed Vital Signs Vital Sign Reading Time Taken Comments Blood Pressure - - Pulse - - Temperature - - Respiratory Rate - - Oxygen Saturation - - Inhaled Oxygen Concentration - - Weight 77.1 kg (170 lb) 03/18/2024 9:49 AM CDT Height 165.1 cm (5' 5 ) 03/18/2024 9:49 AM CDT Body Mass Index 28.29 03/18/2024 9:49 AM CDT documented in this encounter Progress Notes * Gunner Sims MD - 03/18/2024 8:40 AM CDT Images from the original note were not included. NEW PATIENT VISIT CHIEF COMPLAINT: Pain of the Right Knee HISTORY OF PRESENT ILLNESS: 48-year-old female coming in with right knee pain. Patient states it has been going on for 10 yearsbut has significantly gotten worse over the past year. She notes increased pain in frequency and increased usage of anti-inflammatories such as ibuprofen and Tylenol Arthritis. She endorses clicking stiffness catching locking as well as some popping denies any swelling. Worse with going up steps aswell as long periods of immobilization. 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 PAST SURGICAL HISTORY She has no past surgical history on file. INITIAL REVIEW OF MEDICATIONS She currently has no medications in their medication list. DRUG ALLERGIES She has no allergies on file. SOCIAL HISTORY She No alcohol history on file. FAMILY HISTORY Her family history is not on file. REVIEW OF SYSTEMS ROS PHYSICAL EXAMINATION: No acute distress Right lower extremity No obvious effusion. Range of motion 0-120. Patellar translation normal and tilt. Patellar crepitusas well as pain with patellar compression. Medial joint line tenderness. Negative lateral joint line tenderness. Stable Sharee varus valgus stable at 0 and 30??. Stable to anterior drawer and posterior drawer test. Increased pain with Holger. Negative Thessaly deep squat aggravates knee pain. Intact motor and sensation to remedy REVIEW OF IMAGING: X-rays of the right knee Potentially osteochondral lesion of the right medial femoral condyle with associated suprapatellar loose bodies along with mild osteoarthritis IMPRESSION: Possible right knee meniscus injury/osteochondral lesion of the right medial femoral condyle TREATMENT PLAN: Discussed with patient that she potentially has a right knee meniscal injury as well as a osteochondral lesion. Discussed with patient that she should continue doing activity modification as well as symptomatic control however we will order an MRI to evaluate the cartilage as well as meniscus to determine next steps which potentially could include surgery for possible meniscectomy versus chondroplasty and removal of loose bodies. After we get the MRI we will call and discuss next steps I was present for the critical portion of the history, physical examination, and participated in the radiographic review and medical decision making for this patient. I agree with the findings in thereport of the above residence/fellow dictating using [employer] Direct software. Professor of Orthopaedic Surgery Director, Sports Medicine Fellowship [facility] documented in this encounter Plan of Treatment Not on file documented as of this encounter Results * MRI Knee Right WO Contrast (04/06/2024 3:51 PM CDT) Anatomical Region Laterality Modality Lower Extremities Right Magnetic Reson ance us Gunner Sims MD IMG MRI PROCEDURES Final Re sult * XR Knee Right 3 View (03/18/2024 [...] Diagnosis Chronic pain of right knee- Primary Chronic pain of right knee documented in this encounter Historical Medications * This list may reflect changes made after this encounter. Medication Sig Dispense Quantity Refills Last Filled Start D ate End Date Slynd tablet tablet 03/16/2024 famotidine (PEPCID) 20 mg tablet 01/31/2024 atenoloL (TENORMIN) 50 mg tablet 01/30/2024 losartan (COZAAR) 100 mg tablet 01/16/2024 added in this encounter Care Teams Program Engagement Director Relationship Specialty Start Date End Date No, Physician PCP - General 03/05/24 documented as of this encounter
--- OUTSIDE RECORDS SUMMARY | 2024-08-16 09:43 | XMS_ITS | Encounter Summary ---
Author Organization [facility] Address [address] [place] [address] Phone Care Team Providers Care Cosmetic Maker Name Role Phone No, Physician Primary Care Provider Encounter Details Date Type Department Care Team (Late st Contact Info) Description 04/13/2024 Orders Only [facility] [place] [address] [place] [address] Chronic pain of right knee Social History Tobacco Use Types Packs/Day Years Used Date Smoking Tobacco: Never Personal Safety Answer Date Recorded Getting School Help Needed Not on file 03/05 Comments Unknown Sex and Gender Information Value Date Recorded Sex Assigned at Not on file 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 Gender Identity Not on file Sexual Orientation Not on file documented as of this encounter Plan of Treatment Not on file documented as of this encounter Procedures Procedure Name Priority Date/Time Associated Diagnosis Comments MRI KNEE RIGHT WO CONTRAST Schedule Routine, Read Routine (OP Routine) 04/06/2024 3:51 PM CDT Chronic pain of right knee documented in this encounter Results * MRI Knee Right WO Contrast (04/06/2024 3:51 PM CDT) Anatomical Region Laterality Modality Lower Extremities Right Magnetic Reson ance us Gunner Sims MD IMG MRI PROCEDURES Final Re sult documented in this encounter Visit Diagnoses Diagnosis Chronic pain of right knee documented in this encounter Care Teams Cosmetic Maker Relationship Specialty Start Date End Date No, Physician PCP - General 03/05/24 documented as of this encounter
--- OUTSIDE RECORDS SUMMARY | 2024-08-16 09:43 | XMS_ITS | Encounter Summary ---
Author Organization [facility] Address [address] [place] [address] Phone Care Team Providers Care Director Of Family Service Center Name Role Phone No, Physician Primary Care Provider [phone] Encounter Details Date Type Department Care Team (Late st Contact Info) Description 03/22/2024 Telephone [facility] Orthopaedic Surgery [address] [place] [address] [place] [address] [place], [place] [id number] Social History Tobacco Use Types Packs/Day Years Used Date Smoking Tobacco: Never Personal Safety Answer Date Recorded Getting School Help Needed Not on file 03/05 Comments Unknown Sex and Gender Information Value Date Recorded Sex Assigned at Not on file Legal Sex Female 6:00 AM GRAZING AIDE Gender Identity Not on file Sexual Orientation Not on file documented as of this encounter Miscellaneous Notes * Telephone Encounter - Twan Orozco - 03/22/2024 4:19 PM CDT MRI order faxed to [phone] [facility] [address] [facility], [address] TAX [phone] documented in this encounter Plan of Treatment Not on file documented as of this encounter Visit Diagnoses Not on filedocumented in this encounter Care Teams Director Of Family Service Center Relationship Specialty Start Date End Date No, Physician PCP - General 03/05/24 documented as of this encounter
--- OUTSIDE RECORDS SUMMARY | 2024-08-16 09:43 | XMS_ITS | Patient Health Summary ---
Author Organization [facility] Address [address] [place] [address] Care Team Providers Care Fruit Or Nut Farmer Name Role Phone Mariaa Martínez RAEGAN-SAS ARCHITECT Primary Care Provider Note from [facility],non-owned Affiliates and Associated Physician Practices is amultiple site organization consisting of ambulatory clinics and hospital sitesin [place], [place], [place] and [place]. This disclosure is being madepursuant to the Care Everywhere program and may not contain all information available regarding this patient. Last updated 18.[facility] [employer] Allergies No known active allergies Medications * Be aware that medications may not be up to date on this document. Alwaysverify current medications with the patient. * amLODIPine (Norvasc) 5 MG tablet(Started 06/28/2024) Take 1 (one) tablet by mouth once daily * Slynd 4 MG TABS tablet(Started 07/10/2024) Take 1 (one) tablet by mouth once daily * famotidine (Pepcid) 20 MG tablet(Started 01/31/2024) Take 1 (one) tablet by mouth once daily * losartan (Cozaar) 100 MG tablet(Started 04/14/2024) Take 0.5 (one-half) tablet by mouth once daily Active Problems Problem Noted Date Diagnosed Date [...] Comments Blood Pressure 122/90 07/16/2024 2:25 PM CONTROL ROOM HELPER Pulse 83 07/16/2024 2:25 PM CONTROL ROOM HELPER Temperature - - Respiratory Rate - - Oxygen Saturation 97% 07/16/2024 2:25 PM CONTROL ROOM HELPER Inhaled Oxygen Concentration - - Weight 81.6 kg (180 lb) 07/16/2024 2:25 PM CONTROL ROOM HELPER Height 166.4 cm (5' 5.5 ) 07/16/2024 2:25 PM CONTROL ROOM HELPER Body Mass Index 29.5 07/16/2024 2:25 PM CONTROL ROOM HELPER Procedures * THYROID PEROXIDASE ANTIBODY(Performed 07/27/2024) Performed for Hyperthyroidism, Abnormal TSH * TSH RECEPTOR ANTIBODY(Performed 07/27/2024) Performed for Hyperthyroidism, Abnormal TSH * THYROID STIMULATING IMMUNOGLOBULIN (TSI)(Performed 07/27/2024) Performed for Hyperthyroidism, Abnormal TSH * T3 TOTAL(Performed 07/27/2024) Performed for Hyperthyroidism, Abnormal TSH * T4 FREE(Performed 07/27/2024) Performed for Hyperthyroidism, Abnormal TSH * TSH(Performed 07/27/2024) Performed for Hyperthyroidism, Abnormal TSH Results * THYROID PEROXIDASE ANTIBODY (07/27/2024 9:05 AM CONTROL ROOM HELPER) Thyroid Peroxidase TPO Antibody 11 0 - 34 IU/mL [facility] ACCOUNT BILL Blood BLOOD SPECIMEN / Unknown 07/27/2024 9:05 AM CONTROL ROOM HELPER 07/27/2024 Narrative [facility] ACCOUNT BILL - 07/28/2024 7:07 AM CONTROL ROOM HELPER Performed at: ??01 - [facility] [address] ??[id number] Artist Consultant: Spencer Casillas PhD, Phone: ??[phone] Laurie Ashby MD LAB - CHEMISTRY KAREN KNOX [facility] ACCOUNT [facility] [address] [place] [address] * THYROID STIMULATING IMMUNOGLOBULIN (TSI) (07/27/2024 9:05 AM CONTROL ROOM HELPER) Thyroid Stimulating Immunoglobulin <0.10 0.00 - 0.55 IU/L [facility] ACCOUNT BILL Blood BLOOD SPECIMEN / Unknown 07/27/2024 9:05 AM CONTROL ROOM HELPER 07/27/2024 Narrative [facility] ACCOUNT BILL - 07/30/2024 8:08 AM CONTROL ROOM HELPER Performed at: ??01 - [facility] [address] ??[id number] Artist Consultant: Rowan Taylor MD, Phone: ??[phone] Laurie Ashby MD LAB - CHEMISTRY KAREN KNOX Performing Organization Address City/[facility] Co de Phone Number [facility] ACCOUNT BILL [address] [place] [address] * TSH RECEPTOR ANTIBODY (07/27/2024 9:05 AM CONTROL ROOM HELPER) Thyrotropin Receptor Antibody <1.10 0.00 - 1.75 IU/L [facility] ACCOUNT BILL Blood BLOOD SPECIMEN / Unknown 07/27/2024 9:05 AM CONTROL ROOM HELPER 07/27/2024 Narrative [facility] ACCOUNT BILL - 07/30/2024 7:07 AM CONTROL ROOM HELPER Performed at: ??01 - [facility] [address] ??[id number] Artist Consultant: Rowan Taylor MD, Phone: ??[phone] Laurie Ashby MD LAB - CHEMISTRY KAREN KNOX Performing Organization Address City/[facility] Co de Phone Number [facility] ACCOUNT BILL [address] [place] [address] * TSH (07/27/2024 9:05 AM CONTROL ROOM HELPER) TSH 2.390 0.450 - 4.500 uIU/mL [facility] ACCOUNT BILL Blood BLOOD SPECIMEN / Unknown 07/27/2024 9:05 AM CONTROL ROOM HELPER 07/27/2024 Narrative [facility] ACCOUNT BILL - 07/28/2024 7:07 AM CONTROL ROOM HELPER Performed at: ??01 - [facility] [address] ??[id number] Artist Consultant: Spencer Casillas PhD, Phone: ??[phone] Laurie Ashby MD LAB - CHEMISTRY KAREN KNOX [facility] ACCOUNT BILL [address] [place] [address] * T4 FREE (07/27/2024 9:05 AM CONTROL ROOM HELPER) T4 Free 1.09 0.82 - 1.77 ng/dL [facility] ACCOUNT BILL Blood BLOOD SPECIMEN / Unknown 07/27/2024 9:05 AM CONTROL ROOM HELPER 07/27/2024 Narrative [facility] ACCOUNT BILL - 07/28/2024 7:07 AM CONTROL ROOM HELPER Performed at: ??01 - [facility] [address] [place], [place] ??[id number] Artist Consultant: Spencer Casillas PhD, Phone: ??[phone] Laurie Ashby MD LAB - CHEMISTRY KAREN KNOX Performing Organization Address City/[facility]/ZIP Co de Phone Number [facility] ACCOUNT BILL [address] [place] [address] * T3 TOTAL (07/27/2024 9:05 AM CONTROL ROOM HELPER) T3 Total 144 71 - 180 ng/dL [facility] ACCOUNT BILL Blood BLOOD SPECIMEN / Unknown 07/27/2024 9:05 AM CONTROL ROOM HELPER 07/27/2024 Narrative [facility] ACCOUNT BILL - 07/28/2024 9:07 AM CONTROL ROOM HELPER Performed at: ??01 - [facility] [address] ??[id number] Artist Consultant: Spencer Casillas PhD, Phone: ??[phone] Laurie Ashby MD LAB - CHEMISTRY KAREN KNOX [facility] ACCOUNT BILL [address] [place] [address] Care Teams Fruit Or Nut Farmer Relationship Specialty Start Date End Date Mariaa Martínez, CABLE DRILLER-SAS ARCHITECT [address] [place] [address] PCP - General Nurse Practitioner Family 07/16/24
--- OUTSIDE RECORDS SUMMARY | 2024-08-16 09:43 | XMS_ITS | Clinical Summary ---
Author Organization [facility] Address [address] [place] [address] Care Team Providers Care Hoop Punch And Coiler Operator Helper Name Role Phone No, Physician Primary Care Provider [phone] Allergies No known active allergies Medications losartan (COZAAR) 100 mg tablet 01/16/2024 Active atenoloL (TENORMIN) 50 mg tablet 01/30/2024 Active famotidine (PEPCID) 20 mg tablet 01/31/2024 Active Slynd tablet tablet 03/16/2024 Active meloxicam (MOBIC) 15 mg tablet Take 1 tablet (15 mg total) by mouth daily 30 tablet 11 04/15/2024 Active Active Problems No known active problems Surgical History Surgery Date Site/Laterality Comments SINUS SURGERY SECTION 08/04/1994 - 08/03/1995 SECTION 08/04/2006 - 08/03/2007 Medical History Medical History Date Comments Gastric reflux Hypertension Urinary tract infection Family History Medical History Relation Name Comments Diabetes Brother Hypertension Brother Seizures Brother Diabetes Father Heart disease Father Arthritis Mother Hypertension Mother Alcohol abuse Sister Blood Clot Sister Diabetes Sister Lung problems Sister Seizures Sister Relation Name Status Comments Brother Father Mother Sister Social History Tobacco Use Types Packs/Day Years Used Date Smoking Tobacco: Never Tobacco Cessation:Counseling Given: Not Answered Personal Safety Answer Date Recorded Getting School Help Needed Not on file 03/05 Comments Unknown Sex and Gender Information Value Date Recorded Sex Assigned at Not on file Legal Sex Female 6:00 AM DINING SERVICES MANAGER Gender Identity Not on file Sexual Orientation Not on file Obstetrics History Last Filed Vital Signs Vital Sign Reading Time Taken Comments Blood Pressure - - Pulse - - Temperature - - Respiratory Rate - - Oxygen Saturation - - Inhaled Oxygen Concentration - - Weight 77.1 kg (170 lb) 03/18/2024 9:49 AM CDT Height 165.1 cm (5' 5 ) 03/18/2024 9:49 AM CDT Body Mass Index 28.29 03/18/2024 9:49 AM CDT Plan of Treatment Health Maintenance Due Date Last Done Comments Breast Cancer Screening-Mammogram 1976 Cervical Cancer Screening 1976 Colon Cancer Screening-Colonoscopy 1976 Depression Screening 1976 Hepatitis C Screening 1976 DTaP/Tdap/Td Vaccine (1 - Tdap) 1987 Hepatitis B Screening 1994 Regular Well Visit/Exam 18-64 1994 Covid-19 Vaccine (3 - 2023-2 5 season) 2024 11/02/2020, 10/12/2020 Influenza Vaccine (#1) 2024 Pneumococcal vaccine <65 Aged Out No longer eligible based on patient's age to complete this topic Insurance [employer] [facility] Address: [place] [address] Care Teams Hoop Punch And Coiler Operator Helper Relationship Specialty Start Date End Date No, Physician PCP - General 03/05/24
--- OUTSIDE RECORDS SUMMARY | 2024-08-16 09:43 | XMS_ITS | Encounter Summary ---
Author Organization [facility] Address [address] [place] [address] Phone Care Team Providers Care Retrofit Installer Name Role Phone No, Physician Primary Care Provider [phone] Encounter Details Date Type Department Care Team (Late st Contact Info) Description 03/26/2024 Telephone [facility] Orthopaedic Surgery [address] [place] [address] [place] [address] [place], [place] [id number] Social History Tobacco Use Types Packs/Day Years Used Date Smoking Tobacco: Never Personal Safety Answer Date Recorded Getting School Help Needed Not on file 03/05 Comments Unknown Sex and Gender Information Value Date Recorded Sex Assigned at Not on file Legal Sex Female 6:00 AM BLANKING PRESS OPERATOR Gender Identity Not on file Sexual Orientation Not on file documented as of this encounter Miscellaneous Notes * Telephone Encounter - Gunner Ozuna - 03/26/2024 3:53 PM CDT Received approval email from per-cert team. Faxed updated script to facility. documented in this encounter Plan of Treatment Not on file documented as of this encounter Visit Diagnoses Not on filedocumented in this encounter Care Teams Retrofit Installer Relationship Specialty Start Date End Date No, Physician PCP - General 03/05/24 documented as of this encounter
--- OUTSIDE RECORDS SUMMARY | 2024-08-16 09:43 | XMS_ITS | Encounter Summary ---
Author Organization [facility] Address [address] [place] [address] Care Team Providers Care Service And Repair Supervisor Name Role Phone Mariaa Martínez RAEGAN-ACADEMIC AFFAIRS ASSISTANT Primary Care Provider Reason for Visit * Reason Comments Thyroid Problem Encounter Details Date Type Department Care Team (Late st Contact Info) Description 07/16/2024 2:30 PM DOUGH CATCHER Office Visit [facility] - Endocrinology [address] [place] [address] Laurie Ashby MD [address] [place] [address] Abnormal TSH (Primary Dx); Hyperthyroidism Social History Tobacco Use Types Packs/Day Years [...] Comments Blood Pressure 122/90 07/16/2024 2:25 PM DOUGH CATCHER Pulse 83 07/16/2024 2:25 PM DOUGH CATCHER Temperature - - Respiratory Rate - - Oxygen Saturation 97% 07/16/2024 2:25 PM DOUGH CATCHER Inhaled Oxygen Concentration - - Weight 81.6 kg (180 lb) 07/16/2024 2:25 PM DOUGH CATCHER Height 166.4 cm (5' 5.5 ) 07/16/2024 2:25 PM DOUGH CATCHER Body Mass Index 29.5 07/16/2024 2:25 PM DOUGH CATCHER documented in this encounter Patient Instructions * Patient Instructions* Laurie Ashby MD - 07/16/2024 3:09 PM DOUGH CATCHER Hold biotin for atleast 3 days Blood at [facility] Restart Biotin H CATCHER documented in this encounter Progress Notes * Laurie Ashby MD - 07/16/2024 2:23 PM CST [facility] Endocrinology History & Physical Patient Name: Edith Jenkins PCP: SHLOMO Bowling Date of Service: 07/16/2024 Reason for visit: Abnormal TFTs, hyperthyroidism. HPI: Patient is a 48 year old female is referred by SHLOMO Sharif for consultation regarding above medical issues. Patient presents today for evaluation of abnormal thyroid function test. She had routine physical exam and was noted to have completely suppressed TSH. 06/28/2024: TSH <0.15, free T4 1.01, total T4 1.36 Prior thyroid function studies have been normal Complains of fatigue and tiredness. The symptoms have been going for last 1 year. Does not feel refreshed when she wakes up in morning Has been going 10- 15 pounds every year. No swelling/lump/pain in her neck No dysphagia No dysphonia No dyspnea/choking sensation Has noted shortness of breath with climbing stairs for last 3 years. Has cold intolerance, this is chronic. No heat intolerance, but has noted heat intolerance at night for last 2 years No tremors No palpitations No increased BMs/ has chronic constipation +ve hair loss No anxiety, restless. No proximal muscle weakness Menstrual periods- on progetserone, family hx- sister has hypothyroidism Brain fog for last year and poor memory recall. Pt is currently on biotin and folic acid. On biotin 53777 mg daily, folic acid 400 mcg PMHx: No past medical history on file. PSurgHx: No past surgical history on file. Current Meds: Outpatient Medications Marked as Taking for the 07/16/24 encounter (Office Visit) with Laurie Ashby MD Medication Sig amLODIPine (Norvasc) 5 MG tablet Take 1 (one) tablet by mouth once daily famotidine (Pepcid) 20 MG tablet Take 1 (one) tablet by mouth once daily losartan (Cozaar) 100 MG tablet Take 0.5 (one-half) tablet by mouth once daily Slynd 4 MG TABS tablet Take 1 (one) tablet by mouth once daily All:No Known Allergies FamHx: No family history on file. SocHx: Social History Tobacco Use Smoking status: Never Smokeless tobacco: Never Substance Use Topics Alcohol use: Not on file Review of Systems: As per HPI Physical Exam: BP 122/90 Pulse 83 Ht 1.664 m (5' 5.5 ) Wt 81.6 kg (180 lb) SpO2 97% General appearance: alert, cooperative, no distress, appears stated age Thyroid: thyroid is normal in size without nodules or tenderness, normal DTR's, no tremor noted. Lungs: clear to auscultation bilaterally Heart: regular rate and rhythm, Extremities: extremities normal, atraumatic, Laboratory Data: Reviewed interpreted labs including CMP Total protein 8.0, albumin 4.0, triglycerides 59, cholesterol 127, LDL 50, HDL 40, TSH undetectable, free T4 1.01, total T4 1.36, WBC 4.5, hemoglobin 14.9, hematocrit 43.0 Assessment: Abnormal TSH, hyperthyroidism - patient is a 48-year-old female with family history of hypothyroidism who presents with completely suppressed TSH and normal free T4 -clinically patient appears euthyroid. She has normal deep tendon reflexes. No evidence of goiter on nodules on exam. Patient has no tremors and heart rate is stable. -patient has multiple chronic symptoms which can be sometimes seen in hypothyroidism but does not have many symptoms of hyperthyroidism -patient has been on high doses of biotin which may influence the thyroid blood test therefore I will recommend to repeat TFTs after stopping biotin for at least 3 days -other etiology includes early Graves disease, subacute thyroiditis, less likely toxic nodules -I will check Graves antibodies and TPO antibody. Based on results will provide further recommendation. Plan: Hold biotin for 3 days Then repeat labs TSH, free T4, total T3, TSI, TSH receptor antibody and TPO antibody Based on results patient may need a nuclear medicine thyroid scan No indication to start antithyroid medication as patient is clinically stable Follow-up in 3 months. Mariaa Martínez, ELECTRICAL TESTER-ACADEMIC AFFAIRS ASSISTANT, thank you for allowing us to participate in the care of this patient. Orders Placed This Encounter Procedures TSH T4 FREE T3 TOTAL THYROID STIMULATING IMMUNOGLOBULIN (TSI) TSH RECEPTOR ANTIBODY THYROID PEROXIDASE ANTIBODY Laurie Ashby MD Endocrinology, Diabetes & Metabolism H CATCHER documented in this encounter Plan of Treatment Upcoming Encounters Date Type Department Care Team (Late st Contact Info) Description 11/19/2024 2:00 PM CDT Office Visit [facility] - Endocrinology [address] [place] [address] Laurie Ashby MD [address] [place] [address] documented as of this encounter Procedures Procedure Name Priority Date/Time Associated Diagnosis Comments THYROID PEROXIDASE ANTIBODY Routine 07/27/2024 9:05 AM DOUGH CATCHER Hyperthyroidism Abnormal TSH THYROID STIMULATING IMMUNOGLOBULIN (TSI) Routine 07/27/2024 9:05 AM DOUGH CATCHER Hyperthyroidism Abnormal TSH TSH RECEPTOR ANTIBODY Routine 07/27/2024 9:05 AM DOUGH CATCHER Hyperthyroidism Abnormal TSH TSH Routine 07/27/2024 9:05 AM DOUGH CATCHER Hyperthyroidism Abnormal TSH T4 FREE Routine 07/27/2024 9:05 AM DOUGH CATCHER Hyperthyroidism Abnormal TSH T3 TOTAL Routine 07/27/2024 9:05 AM DOUGH CATCHER Hyperthyroidism Abnormal TSH documented in this encounter Results * THYROID PEROXIDASE ANTIBODY (07/27/2024 9:05 AM DOUGH CATCHER) Thyroid Peroxidase TPO Antibody 11 0 - 34 IU/mL [facility] ACCOUNT BILL Blood BLOOD SPECIMEN / Unknown 07/27/2024 9:05 AM DOUGH CATCHER 07/27/2024 Narrative [facility] ACCOUNT BILL - 07/28/2024 7:07 AM DOUGH CATCHER Performed at: ??01 - [facility] [address] ??[id number] Coffee Attendant: Spencer Casillas PhD, Phone: ??[phone] Laurie Ashby MD LAB - CHEMISTRY KAREN KNOX [facility] ACCOUNT BILL [address] [place] [address] * TSH RECEPTOR ANTIBODY (07/27/2024 9:05 AM DOUGH CATCHER) Thyrotropin Receptor Antibody <1.10 0.00 - 1.75 IU/L [facility] ACCOUNT BILL Blood BLOOD SPECIMEN / Unknown 07/27/2024 9:05 AM DOUGH CATCHER 07/27/2024 Narrative [facility] ACCOUNT BILL - 07/30/2024 7:07 AM DOUGH CATCHER Performed at: ??01 - [facility] [address] ??[id number] Coffee Attendant: Rowan Taylor MD, Phone: ??[phone] Laurie Ashby MD LAB - CHEMISTRY KAREN KNOX Performing Organization Address [facility] Co de Phone Number [facility] ACCOUNT BILL [address] [place] [address] * THYROID STIMULATING IMMUNOGLOBULIN (TSI) (07/27/2024 9:05 AM DOUGH CATCHER) Thyroid Stimulating Immunoglobulin <0.10 0.00 - 0.55 IU/L [facility] ACCOUNT BILL Blood BLOOD SPECIMEN / Unknown 07/27/2024 9:05 AM DOUGH CATCHER 07/27/2024 Narrative [facility] ACCOUNT BILL - 07/30/2024 8:08 AM DOUGH CATCHER Performed at: ??01 - [facility] [address] ??[id number] Coffee Attendant: Rowan Taylor MD, Phone: ??[phone] Laurie Ashby MD LAB - CHEMISTRY KAREN KNOX Performing Organization Address City/[facility]/ZIP Co de Phone Number [facility] ACCOUNT BILL [address] [place] [address] * T3 TOTAL (07/27/2024 9:05 AM DOUGH CATCHER) T3 Total 144 71 - 180 ng/dL [facility] ACCOUNT BILL Blood BLOOD SPECIMEN / Unknown 07/27/2024 9:05 AM DOUGH CATCHER 07/27/2024 Narrative [facility] ACCOUNT BILL - 07/28/2024 9:07 AM DOUGH CATCHER Performed at: ??01 - [facility] [address] ??[id number] Coffee Attendant: Spencer Casillas PhD, Phone: ??[phone] Laurie Ashby MD LAB - CHEMISTRY KAREN KNOX Performing Organization Address City/[facility] Co de Phone Number [facility] ACCOUNT BILL [address] [place] [address] * T4 FREE (07/27/2024 9:05 AM DOUGH CATCHER) T4 Free 1.09 0.82 - 1.77 ng/dL [facility] ACCOUNT BILL Blood BLOOD SPECIMEN / Unknown 07/27/2024 9:05 AM DOUGH CATCHER 07/27/2024 Narrative [facility] ACCOUNT BILL - 07/28/2024 7:07 AM DOUGH CATCHER Performed at: ??01 - [facility] [address] ??[id number] Coffee Attendant: Spencer Casillas PhD, Phone: ??[phone] Laurie Ashby MD LAB - CHEMISTRY KAREN KNOX Performing Organization Address City/[facility] Co de Phone Number [facility] ACCOUNT BILL [address] [place] [address] * TSH (07/27/2024 9:05 AM DOUGH CATCHER) TSH 2.390 0.450 - 4.500 uIU/mL [facility] ACCOUNT BILL Blood BLOOD SPECIMEN / Unknown 07/27/2024 9:05 AM DOUGH CATCHER 07/27/2024 Narrative [facility] ACCOUNT BILL - 07/28/2024 7:07 AM DOUGH CATCHER Performed at: ??01 - [facility] [address] ??[id number] Coffee Attendant: Spencer Casillas PhD, Phone: ??[phone] Laurie Ashby MD LAB - CHEMISTRY KAREN KNOX [facility] ACCOUNT [place] [address] documented in this encounter Visit Diagnoses Diagnosis Abnormal TSH- Primary Other abnormal clinical finding Hyperthyroidism Thyrotoxicosis without mention of goiter or other cause, without mention of thyrotoxic crisis or storm documented in this encounter Care Teams Service And Repair Supervisor Relationship Specialty Start Date End Date Mariaa Martínez, ELECTRICAL TESTER-ACADEMIC AFFAIRS ASSISTANT [address] [place] [address] PCP - General Nurse Practitioner Family 07/16/24 documented as of this encounter
--- OUTSIDE RECORDS SUMMARY | 2024-08-16 09:43 | XMS_ITS | Encounter Summary ---
Author Organization [facility] Address [address] [place] [address] Care Team Providers Care Newspaper Inserter Name Role Phone Mariaa Martínez APRN-ROSEANNA Primary Care Provider Encounter Details Date Type Department Care Team (Latest Contact Info) Description 07/16/2024 Travel Social History Tobacco Use Types Packs/Day Years Used Date Smoking Tobacco: Never Smokeless Tobacco: Never PHQ-2 Answer Date Recorded Patient Health Questionnaire-2 Score 0 07/16/2024 Sex and Gender Information Value Date Recorded Sex Assigned at Not on file Gender Identity Not on file Sexual Orientation Not on file documented as of this encounter Plan of Treatment Upcoming Encounters Date Type Department Care Team (Late st Contact Info) Description 11/19/2024 2:00 PM CDT Office Visit [facility] - Endocrinology [address] [place] [address] Laurie Ashby MD [address] [place] [address] documented as of this encounter Visit Diagnoses Not on filedocumented in this encounter Care Teams Newspaper Inserter Relationship Specialty Start Date End Date Mariaa Martínez APRN-CNP [address] [place] [address] PCP - General Nurse Practitioner Family 07/16/24 documented as of this encounter
--- OUTSIDE RECORDS SUMMARY | 2024-08-16 09:44 | XMS_ITS | Encounter Summary ---
Author Organization [facility] Address [address] [place]: Epic Prelude [place] [address] Care Team Providers Care Packing Line Operator Name Role Phone Unavailable Primary Care Provider Unavailabl e Encounter Details Date Type Department Care Team (Latest Contact Info) Description 10/12/2020 Travel Social History Tobacco Use Types Packs/Day Years Used Date Smoking Tobacco: Never Alcohol Use Standard Drinks/Week Comments Yes 0 (1 standard drink = 0.6 oz pur e alcohol) occ Sex and Gender Information Value Date Recorded Sex Assigned at Not on file Gender Identity Not on file Sexual Orientation Not on file COVID-19 Exposure Response Date Recorded In the last month, have you been in contact with someone who was confirmed or suspected to have Coronavirus / COVID-19? No / Unsure 10/12/2020 3:50 PM REINSURANCE CLAIM ANALYST documented as of this encounter Plan of Treatment Not on file documented as of this encounter Visit Diagnoses Not on filedocumented in this encounter
--- OUTSIDE RECORDS SUMMARY | 2024-08-16 09:44 | XMS_ITS | Encounter Summary ---
Author Organization [facility] Address [address] [place]: Epic Prelude [place] [address] Care Team Providers Care Drilling Engineer Name Role Phone Unavailable Primary Care Provider Unavailabl e Encounter Details Date Type Department Care Team (Latest Contact Info) Description 10/11/2020 Travel Social History Tobacco Use Types Packs/Day [...] have Coronavirus / COVID-19? No / Unsure 10/11/2020 3:12 PM SENSOR OPERATOR documented as of this encounter Plan of Treatment Not on file documented as of this encounter Visit Diagnoses Not on filedocumented in this encounter
--- OUTSIDE RECORDS SUMMARY | 2024-08-16 09:44 | XMS_ITS | Encounter Summary ---
Author Organization [facility] Address [address] [place] [address] Care Team Providers Care Brake Repairer Air Name Role Phone Unavailable Primary Care Provider Unavailabl e Encounter Details Date Type Department Care Team (Late st Contact Info) Description 10/12/2020 3:10 PM SQL REPORT WRITER Immunization [facility] Vaccine [facility] [address] [address] High priority for 2019 novel coronavirus vaccination (Primary Dx) Social History Tobacco Use Types [...] COVID-19? No / Unsure 10/12/2020 3:50 PM SQL REPORT WRITER documented as of this encounter Plan of Treatment Not on file documented as of this encounter Visit Diagnoses Diagnosis High priority for 2019 novel coronavirus vaccination- Primary documented in this encounter
--- OUTSIDE RECORDS SUMMARY | 2024-08-16 09:44 | XMS_ITS | Encounter Summary ---
Author Organization [facility] Address [address] [place] [address] Care Team Providers Care Staff Internist Office Based Only Name Role Phone Unavailable Primary Care Provider Unavailabl e Reason for Visit * Reason Comments covid test (rapid) sx: none Tra micah Encounter Details Date Type Department Care Team ([facility] Contact Info) Description 11/16/2020 4:25 PM CDT Office Visit [facility] [address] [place] [phone] Mary Lou Hi FNP [address] [place] [address] Encounter for screening laboratory testing for COVID-19 virus (Primary Dx) Social History Tobacco Use Types [...] Sign Reading Time Taken Comments Blood Pressure 164/118 11/16/2020 4:42 PM CDT Pulse 85 11/16/2020 4:42 PM CDT Temperature 37.1 ??C (98.7 ??F) 11/16/2020 4:42 PM CD T Respiratory Rate - - Oxygen Saturation 97% 11/16/2020 4:42 PM CDT Inhaled Oxygen Concentration - - Weight 77.1 kg (170 lb) 11/16/2020 4:42 PM CDT Height 165.1 cm (5' 5 ) 11/16/2020 4:42 PM CDT Body Mass Index 28.29 11/16/2020 4:42 PM CDT documented in this encounter Progress Notes * Mary Lou Hi FNP - 11/16/2020 4:25 PM CDT Pt here for COVID-19 swab POC rapid testing only. No known direct exposure [place] travel. Patient is not having ill symptoms and has not been ill in the last 2 weeks. Has not traveled in the last 30 days. Nasal swab collected, which patient tolerated well and without difficulty. Rapid test performed in center today. No results found for this visit on 11/16/20. Physical Exam: BP (!) 164/118 Pulse 85 Temp 98.7 ??F (37.1 ??C) Ht 5' 5 (1.651 m) Wt 77.1 kg (170 lb) SpO2 97% BMI 28.29 kg/m?? General appearance: alert, in no distress Lungs: clear to auscultation bilaterally, normal respiratory effort Heart: normal rate, regular rhythm, normal S1, S2, no murmurs, rubs, clicks or gallops Skin: Skin color, texture, turgor normal. No rashes or lesions AVS not printed. documented in this encounter Plan of Treatment Not on file documented as of this encounter Procedures Procedure Name Priority Date/Time Associated Diagnosis Comments POC COVID-19 PCR DETECTION Routine 11/16/2020 5:17 PM CDT Encounter for screening laboratory testing for COVID-19 virus documented in this encounter Results * POC COVID-19 PCR DETECTION (11/16/2020 5:17 PM CDT) COVID-19 NAAT POC Not Detected Not Detected [facility] INTERNAL KIT QC Pass Pass [id number] DATE POC 03/17/2021 [facility] 11/16/2020 5:17 PM CDT Mary Lou Jacqui Hi FOURDRINIER MACHINE TENDER POINT OF CARE TESTING [facility]# [id number] [id number] [address], documented in this encounter Visit Diagnoses Diagnosis Encounter for screening laboratory testing for COVID-19 virus- Primary documented in this encounter
--- OUTSIDE RECORDS SUMMARY | 2024-08-16 09:44 | XMS_ITS | Encounter Summary ---
Author Organization [facility] Address [address] [place] [address] Care Team Providers Care Heel Top Lift Splitter Name Role Phone Unavailable Primary Care Provider Unavailabl e Encounter Details Date Type Department Care Team (Late st Contact Info) Description 02/21/2020 Digital Self COVID-1 9 Monitoring [facility] ABSTRACTION Provider, Abstract NO ADDRESS ON FILE Social History Tobacco Use Types Packs/Day Years [...] or suspected to have Coronavirus / COVID-19? Yes 02/15/2020 4:00 PM CDT documented as of this encounter Plan of Treatment Not on file documented as of this encounter Visit Diagnoses Not on filedocumented in this encounter Additional Health Concerns Infection Onset Date Last Indicated Resolved Time COVID-19 02/15/2020 02/15/2020 03/16/2020 1:16 AM CDT documented as of this encounter
--- OUTSIDE RECORDS SUMMARY | 2024-08-16 09:44 | XMS_ITS | Encounter Summary ---
Author Organization [facility] Address [address] [place] [address] Care Team Providers Care Agricultural Produce Sorter Name Role Phone Unavailable Primary Care Provider Unavailabl e Reason for Visit * Reason Onset Date Comments Results 02/29/2020 Encounter Details Date Type Department Care Team (Late st Contact Info) Description 02/29/2020 Telephone [facility] [address] [place] [address] Suzy Ulloa MD [address] [place] [address] Results Social History Tobacco Use Types Packs/Day Years [...] suspected to have Coronavirus / COVID-19? Yes 02/27/2020 8:32 AM CDT documented as of this encounter Miscellaneous Notes * Telephone Encounter - Gi Davidson LPN - 02/29/2020 8:42 AM CDT Patient called requesting covid results. Emailed results to [email or web address] documented in this encounter Plan of Treatment Not on file documented as of this encounter Visit Diagnoses Not on filedocumented in this encounter Additional Health Concerns Infection Onset Date Last Indicated Resolved Time COVID-19 02/15/2020 02/15/2020 03/16/2020 1:16 AM CDT documented as of this encounter
--- OUTSIDE RECORDS SUMMARY | 2024-08-16 09:44 | XMS_ITS | Encounter Summary ---
Author Organization [facility] Address [address] [place] [address] Care Team Providers Care Corporate Recruiter Name Role Phone Unavailable Primary Care Provider Unavailabl e Encounter Details Date Type Department Care Team (Late st Contact Info) Description 02/22/2020 Digital Self COVID-1 9 Monitoring [facility] ABSTRACTION [...]
--- OUTSIDE RECORDS SUMMARY | 2024-08-16 09:44 | XMS_ITS | Encounter Summary ---
Author Organization [facility] Address [address] [place] [address] Care Team Providers Care Community Service Officer Coordinator Name Role Phone Unavailable Primary Care Provider Unavailabl e Encounter Details Date Type Department Care Team (Late st Contact Info) Description 11/02/2020 3:25 PM CDT Immunization [facility]ine [facility] [address] [address] High priority for 2019 novel coronavirus vaccination [...] COVID-19? No / Unsure 10/12/2020 3:50 PM RESIDENTIAL SOLAR CONSULTANT documented as of this encounter Plan of Treatment Not on file documented as of this encounter Visit Diagnoses Diagnosis High priority for 2019 novel coronavirus vaccination- Primary documented in this encounter
--- OUTSIDE RECORDS SUMMARY | 2024-08-16 09:44 | XMS_ITS | Encounter Summary ---
Author Organization [facility] Address [address] [place]: Epic Prelude [place] [address] Care Team Providers Care Showcase Maker Name Role Phone Unavailable Primary Care Provider Unavailabl e Encounter Details Date Type Department Care Team (Latest Contact Info) Description 02/27/2020 Travel Social History Tobacco Use Types Packs/Day [...] AM CDT documented as of this encounter Plan of Treatment Not on file documented as of this encounter Visit Diagnoses Not on filedocumented in this encounter Additional Health Concerns Infection Onset Date Last Indicated Resolved Time COVID-19 02/15/2020 02/15/2020 03/16/2020 1:16 AM CDT documented as of this encounter
--- OUTSIDE RECORDS SUMMARY | 2024-08-16 09:44 | XMS_ITS | Encounter Summary ---
Author Organization [facility] Address [address] [place] [address] Care Team Providers Care Road Train Driver Name Role Phone Unavailable Primary Care Provider Unavailabl e Encounter Details Date Type Department Care Team (Late st Contact Info) Description 07/19/2020 Orders Only [facility] HCW Covid Vaccine [facility] [address] [place] [address] [place] [address] [address] [place] [address] Need for vaccination Social History Tobacco Use Types Packs/Day Years [...] as of this encounter Visit Diagnoses Diagnosis Need for vaccination Need for prophylactic vaccination and inoculation against unspecified single disease documented in this encounter
--- OUTSIDE RECORDS SUMMARY | 2024-08-16 09:44 | XMS_ITS | Encounter Summary ---
Author Organization [facility] Address [address] [place] [address] Care Team Providers Care Senior Systems Administrator Name Role Phone Unavailable Primary Care Provider Unavailabl e Encounter Details Date Type Department Care Team (Late st Contact Info) Description 02/20/2020 Digital Self COVID-1 9 Monitoring [facility] ABSTRACTION [...]
--- OUTSIDE RECORDS SUMMARY | 2024-08-16 09:44 | XMS_ITS | Encounter Summary ---
Author Organization [facility] Address [address] [place] [address] Care Team Providers Care Well Service Floorperson Name Role Phone Unavailable Primary Care Provider [...]
--- OUTSIDE RECORDS SUMMARY | 2024-08-16 09:44 | XMS_ITS | Encounter Summary ---
Author Organization [facility] Address [address] [place] [address] Care Team Providers Care Visual Display Manager Name Role Phone Unavailable Primary Care Provider [...]
--- OUTSIDE RECORDS SUMMARY | 2024-08-16 09:45 | XMS_ITS | Encounter Summary ---
Author Organization [facility] Address [address] [place] [address] Care Team Providers Care Engineer [employer] Name Role Phone Unavailable Primary Care Provider [...]
--- OUTSIDE RECORDS SUMMARY | 2024-08-16 09:45 | XMS_ITS | Encounter Summary ---
Author Organization [employer] Address [address] [place] [address] Care Team Providers Care Grain Oilseed Or Pasture Farm Worker Name Role Phone Unavailable Primary Care Provider Unavailabl e Encounter Details Date Type Department Care Team (Late st Contact Info) Description 02/19/2020 Telephone [facility] [address] [place] [address] Libra Byers NP NO ADDRESS ON FILE Social History Tobacco [...] PM CDT documented as of this encounter Miscellaneous Notes * Telephone Encounter - Libra Byers NP - 02/19/2020 3:13 PM CDT [facility] Interaction Note: Service Line: COVID Chief Complaint: Patient responded to COVID text that her symptoms were worsening today. Assessment: She states the she intended to respond that she had no worsening symptoms. Plan: Patient will call for further concerns. Visit was completed by: Phone documented in this encounter Plan of Treatment Not on file documented as of this encounter Visit Diagnoses Not on filedocumented in this encounter Additional Health Concerns Infection Onset Date Last Indicated Resolved Time COVID-19 02/15/2020 02/15/2020 03/16/2020 1:16 AM CDT documented as of this encounter
--- OUTSIDE RECORDS SUMMARY | 2024-08-16 09:45 | XMS_ITS | Encounter Summary ---
Author Organization [facility] Address [address] [place] [address] Care Team Providers Care Battery Technician Name Role Phone Unavailable Primary Care Provider Unavailabl e Encounter Details Date Type Department Care Team (Late st Contact Info) Description 02/17/2020 Digital Self COVID-1 [address] [facility] ABSTRACTION [...]
--- OUTSIDE RECORDS SUMMARY | 2024-08-16 09:45 | XMS_ITS | Continuity of Care Document ---
Author Organization [facility] Address [address] [place] [address] Phone Care Team Providers Care Switchboard Manager Name Role Phone Gunner Xavier MD Unavailable Unavailable Procedures Procedure Date MRI, LOWER JOINT EXTREMITY W/O CONTRAST Advance Directives Directive Yes / No Effective Date File Name No Information Encounters Encounter Description Practice Location Reason(s) For Visit Diagnoses Date Provider Providers Copied on Encounter [facility], [address], [place], [place], [id number], [place] tel:[phone] [facility] No Information Duc Martino. [address], [place], [id number], [place]. tel:[phone] Referring Provider: Gunner Sims, [address] [place], [address]. tel:[phone] Family History Family Member Type Diagnosis Age At Onset No Information Payers Payer name Insurance type Covered libertarian ID Authoriza tiisabel(s) [facility] CHO[facility] [id number] Social History Type Description Quantity Date Captured Comments Sex Female Smoking Status No Information Chief Complaint And Reason For Visit No Information Reason For Referral Reason For Referral No Information History Of Present Illness Encounter Date Complaint History Of Prese nt Illness No Information Functional Status Date Functional Assessmen t No Information Instructions Date Instruction Additional Infor mation No Information Assessments Type Assessment Date No Information Patient Care Teams Name Effective Dates (start - stop) Status Members No Information
--- OUTSIDE RECORDS SUMMARY | 2024-08-16 09:45 | XMS_ITS | Encounter Summary ---
Author Organization [facility] Address [address] [place] [address] Care Team Providers Care Welding Tester Name Role Phone Unavailable Primary Care Provider Unavailabl e Encounter Details Date Type Department Care Team (Late st Contact Info) Description 02/18/2020 Digital Self COVID-1 [address] [facility] ABSTRACTION [...]
--- OUTSIDE RECORDS SUMMARY | 2024-08-16 09:45 | XMS_ITS | Encounter Summary ---
Author Organization [facility] Address [address] [place] [address] Care Team Providers Care Track Welder Name Role Phone Unavailable Primary Care Provider [...]
--- OUTSIDE RECORDS SUMMARY | 2024-08-16 09:45 | XMS_ITS | Encounter Summary ---
Author Organization [facility] Address [address] [place] [address] Care Team Providers Care Lead Slot Technician Name Role Phone Unavailable Primary Care Provider Unavailabl e Reason for Visit * Reason Comments exposure to covid-19 Encounter Details Date Type Department Care Team (Late st Contact Info) Description 02/15/2020 4:05 PM CDT Office Visit [address] [place] [id number] Suzy Ulloa MD [address] [place] [address] Exposure to COVID-19 virus (Primary Dx) Social History Tobacco [...] PM CDT documented as of this encounter Last Filed Vital Signs Vital Sign Reading Time Taken Comments Blood Pressure 166/112 02/15/2020 4:59 PM CDT Pulse 80 02/15/2020 4:59 PM CDT Temperature 37.2 ??C (99 ??F) 02/15/2020 4:59 PM CDT Respiratory Rate 18 02/15/2020 4:59 PM CDT Oxygen Saturation 96% 02/15/2020 4:59 PM CDT Inhaled Oxygen Concentration - - Weight - - Height - - Body Mass Index - - documented in this encounter Progress Notes * Suzy Ulloa MD - 02/15/2020 5:03 PM CDT Images from the original note were not included. HISTORY OF PRESENT ILLNESS Edith Jenkins, a 44 y.o. female presents with a Chief Complaint of exposure to covid-19 Subjective HPI [facility] Provider note. Edith Jenkins, a 44 y.o. female, presents with request for COVID testing. Works closely with shalini who recently tested positive for COVID-19. Last exposure 02/08/2020. Has had mild headache today, tried tylenol which did not help. Denies any other symptoms. Works as an MA/scribe. Covid-19 Symptom Assessment: Fever: no Chills: no New Cough: no Shortness of Breath: no Sore Throat: no Headache: yes Muscle Aches: no Diarrhea: no Covid-19 Exposure Risk Assessment: Known Covid-19 exposure within 14 days: yes Health care worker: yes Institutional home setting (SNF, dorm, detention, nursing home): no Have you traveled internationally in the last month? no If yes, location? Have you traveled within the [place] in the last month? yes - returned from [place] 2 days ago. If yes, location? Covid-19 Medical Risk Assessment: Age > 60: no Cardiovascular disease: no Hypertension: no Diabetes Mellitus: no Chronic Lung Disease: no Cirrhosis: no ESRD: no : no Immunocompromised: no The patient's medications, allergies, past medical history, past surgical history, family history, and social history are all reviewed and updated at the time of today's visit. No past medical history on file. No past surgical history on file. Social History Tobacco Use ??? Smoking status: Never Smoker Substance Use Topics ??? Alcohol use: Yes Comment: occ ??? Drug use: Never No family history on file. Patient's Home Medications No Known Allergies Travel Screening Question Response In the last month, have you been in contact with someone who was confirmed or suspected to have Coronavirus / COVID-19? Yes Do you have any of the following symptoms? Unable to assess Have you traveled internationally in the last month? No Travel History Travel since 01/16/20 No documented travel since 01/16/20 REVIEW OF SYSTEMS Review of Systems Constitutional: Negative for chills, fatigue and fever. HENT: Negative for congestion, postnasal drip and sore throat. Respiratory: Negative for cough and shortness of breath. Cardiovascular: Negative for chest pain. Gastrointestinal: Negative for abdominal pain, diarrhea, nausea and vomiting. Musculoskeletal: Negative for myalgias. Skin: Negative for rash. Neurological: Positive for headaches. Negative for dizziness. Psychiatric/Behavioral: Negative for sleep disturbance. All other systems reviewed and are negative. Objective PHYSICAL EXAM BP (!) 166/112 Pulse 80 Temp 99 ??F (37.2 ??C) Resp 18 LMP (LMP Unknown) SpO2 96% No Physical Exam Vitals signs and nursing note reviewed. Constitutional: General: She is not in acute distress. Appearance: Normal appearance. She is not ill-appearing, toxic-appearing or diaphoretic. HENT: Head: Normocephalic and atraumatic. Nose: Nose normal. Mouth/Throat: Mouth: Mucous membranes are moist. Pharynx: Oropharynx is clear. Eyes: General: Right eye: No discharge. Left eye: No discharge. Conjunctiva/sclera: Conjunctivae normal. Pupils: Pupils are equal, round, and reactive to light. Neck: Musculoskeletal: Neck supple. Cardiovascular: Rate and Rhythm: Normal rate and regular rhythm. Heart sounds: Normal heart sounds. Pulmonary: Effort: Pulmonary effort is normal. No respiratory distress. Breath sounds: Normal breath sounds. No stridor. No wheezing, rhonchi or rales. Chest: Chest wall: No tenderness. Lymphadenopathy: Cervical: No cervical adenopathy. Skin: General: Skin is warm and dry. Findings: No rash. Neurological: General: No focal deficit present. Mental Status: She is alert and oriented to person, place, and time. Psychiatric: Mood and Affect: Mood normal. Behavior: Behavior normal. Procedures Assessment ASSESSMENT and PLAN: ICD-10-CM ICD-9-CM 1. Exposure to COVID-19 virus Z20.828 V01.79 2019 NOVEL CORONAVIRUS (COVID-19) PCR DETECTION 2019 NOVEL CORONAVIRUS (COVID-19) PCR DETECTION 14 day quarantine from time of exposure, but may need 10 day quarantine from onset of symptoms (headache) today. Will determine based on results and evolution of symptoms. I discussed Edith's current symptoms within the context of the ongoing COVID- 19 pandemic: - Based on exposures, clinical history & physical examination, I have medium clinical suspicionfor COVID-19 related illness. - Edith does meet current criteria for SARS-CoV2 testing. - Reviewed epidemiologic features of COVID-19 including ability to spread virus while asymptomatic,incubation period (2-14 days, avg of 4-5 days) & contagion rate of 2-3 cases per exposure. - Reviewed clinical features of COVID-19 including rates of asymptomatic/mild disease (~80% in adults, ~94% in peds), variable presentation/course in children, typical course in adults (fever, myalgia, dry cough with development of respiratory distress at ~7 days of illness), higher risk of morbidit y/mortality (age>60, heart dz, lung dz, immune dz). - Based on my level of clinical suspicion for COVID-19, I recommended that the family follow the COVID-19 home isolation guidelines (provided on AVS) in addition to standard social distancing measures. - Advised to call 911/ go to ED should Edith develop signs/sxs of respiratory distress. * Mariela Vázquez, GUILLERMO - 02/15/2020 4:53 PM CDT Edith Jenkins presents to urgent care today and has complaint of exposure to covid-19. Pt states that her coworker that she works closely with has tested positive for covid-19. Pt states she waslast around this coworker last Friday02/08/20. Pt denies cough, fever, SOB, sore throat, N/V, or diarrhea. Pt states that she has had a headache the past 2 days. Patient stated taking these medications: No OTC medications today. documented in this encounter Miscellaneous Notes * Result Encounter Note - Brenna Samson, JOSE - 02/16/2020 8:43 AM CDT I informed patient of positive COVID-19 test results. I recommended that they notify any close contacts they may have had up to 4 days before symptom onset of their positive result to facilitate these contacts receiving testing should they become symptomatic. I stressed the importance of staying home and at least 10 feet away from other people and pets until at least 10 days have elapsed since the onset of symptoms AND they have been fever free without the use of fever- reducing medication for 3days AND their symptoms are significantly improved. If they develop new or worsening symptoms, theyshould contact their primary care physician or go to the ER/call 911 for further evaluation. The patient was also instructed that CDC's guidelines call for home isolation of all close contactswho may have been exposed to the COVID-19 positive person during the period of time the patient hasbeen ill and up to two days prior to onset of symptoms. This home isolation of exposed contacts should last until 14 days after the last exposure, but may be longer if they become symptomatic. Exposed contacts should monitor their temperature at least twice a day, and call their primary care physicians if they develop symptoms. The patient voiced understanding and agreement. * Patient Instructions - Suzy Ulloa MD - 02/15/2020 5:13 PM CDT Please follow with your primary care physician No primary care provider on file. in 24 to 48 hours if no better. If your symptoms worsen please go to the local ER. You may have been referred to [facility] for follow up also. If you do not have a primary care doctor [facility] offers free referral service by calling [phone], , or toll free . This information can also be found at [email or web address]. If you had a test ordered you can schedule by calling [facility] Test [phone] If you have been referred you can call [facility] Referral: [phone] If you are female and on hormone based control there is a slight increase in risk with the use of antibiotics. You should back up your OCP with condom or other method during this (or any) cycle during which she is taking antibiotics. Thank you for choosing [facility]: [facility] Location [address] [place] [address] [address] [place] [address] [place] [address] [phone] [facility] [place] Location [address] [facility] [address] [place] [address] [place] [address] [phone] IMPORTANT: You were examined and treated today on an urgent basis. This was not a substitute for, nor an effort to provide, complete and ongoing medical care. On arrival to [facility] you may have reported taking home medications that will be listed on your After Visit Summary. If applicable this regimen is not being changed, except as noted and discussed with you. You should follow up with your primary care physician for ongoing medicationmanagement. This AVS (after visit summary) is a printed copy of the form that is part of your permanent electronic medical record. By accepting this form you acknowledge that your tests, diagnosis, treatment plan, and follow up care has been discussed with you by appropriate medical personnel and you understand and agree with them. Thank-you again for choosing [facility]. Any Concerns call the [facility] COVID-19 line Stay home except to get medical care People who are mildly ill with COVID-19 are able to isolate at home during their illness. You should restrict activities outside your home, except for getting medical care. Do not go to work, school,or public areas. Avoid using public transportation, ride-sharing, or taxis. Separate yourself from other people and animals in your home People: As much as possible, you should stay in a specific room and away from other people in your home. Also, you should use a separate bathroom, if available. Animals: You should restrict contact with pets and other animals while you are sick with COVID-19, just like you would around other people. Although there have not been reports of pets or other animals becoming sick with COVID-19, it is still recommended that people sick with COVID-19 limit contactwith animals until more information is known about the virus. When possible, have another member of your household care for your animals while you are sick. If you are sick with COVID-19, avoid contact with your pet, including petting, snuggling, being kissed or licked, and sharing food. If you must care for your pet or be around animals while you are sick, wash your hands before and after you interact with pets and wear a facemask. See COVID-19 and Animals for more information. Call ahead before visiting your doctor If you have a medical appointment, call the healthcare provider and tell them that you have or may have COVID-19. This will help the healthcare provider's office take steps to keep other people from getting infected or exposed. Wear a facemask You should wear a facemask when you are around other people (e.g., sharing a room or vehicle) or pets and before you enter a healthcare provider's office. If you are not able to wear a facemask (for example, because it causes trouble breathing), then people who live with you should not stay in the same room with you, or they should wear a facemask if they enter your room. Cover your coughs and sneezes Cover your mouth and nose with a tissue when you cough or sneeze. Throw used tissues in a lined trash can. Immediately wash your hands with soap and water for at least 20 seconds or, if soap and water are not available, clean your hands with an alcohol-based hand collections and archives director that contains at least 60% alcohol. Clean your hands often Wash your hands often with soap and water for at least 20 seconds, especially after blowing your nose, coughing, or sneezing; going to the bathroom; and before eating or preparing food. If soap and water are not readily available, use an alcohol-based hand collections and archives director with at least 60% alcohol, covering all surfaces of your hands and rubbing them together until they feel dry. Soap and water are the best option if hands are visibly dirty. Avoid touching your eyes, nose, and mouth with unwashed hands. Avoid sharing personal household items You should not share dishes, drinking glasses, cups, eating utensils, towels, or bedding with otherpeople or pets in your home. After using these items, they should be washed thoroughly with soap and water. Clean all ???high-touch?? surfaces everyday High touch surfaces include counters, tabletops, doorknobs, bathroom fixtures, toilets, phones, keyboards, tablets, and bedside tables. Also, clean any surfaces that may have blood, stool, or body fluids on them. Use a household cleaning spray or wipe, according to the label instructions. Labels contain instructions for safe and effective use of the cleaning product including precautions you should take when applying the product, such as wearing gloves and making sure you have good ventilation during use of the product. Monitor your symptoms Seek prompt medical attention if your illness is worsening (e.g., difficulty breathing). Before seeking care, call your healthcare provider and tell them that you have, or are being evaluated for, COVID-19. Put on a facemask before you enter the facility. These steps will help the healthcare provider's office to keep other people in the office or waiting room from getting infected or exposed. Askyour healthcare provider to call the local or [facility] health department. Persons who are placed underactive monitoring or facilitated self- monitoring should follow instructions provided by their localhealth department or occupational health professionals, as appropriate. When working with your local health department check their available hours. If you have a medical emergency and need to call 911, notify the dispatch personnel that you have, or are being evaluated for COVID-19. If possible, put on a facemask before emergency medical services arrive. Discontinuing home isolation Patients with confirmed COVID-19 should remain under home isolation precautions until the risk of secondary transmission to others is thought to be low. The decision to discontinue home isolation precautions should be made on a [id number]-im-[id number] basis, in consultation with healthcare providers and [facility]. Recommended precautions for household members, intimate partners, and caregivers in a nonhealthcaresetting1 of A patient with symptomatic laboratory-confirmed COVID-19 Or A patient under investigation Household members, intimate partners, and caregivers in a nonhealthcare setting may have close contact2 with a person with symptomatic, laboratory-confirmed COVID-19 or a person under investigation. Close contacts should monitor their health; they should call their healthcare provider right away ifthey develop symptoms suggestive of COVID-19 (e.g., fever, cough, shortness of breath) (see [place]im[place] Guidance for Risk Assessment and Public Health Management of Persons with Potential Coronavirus Disease 2019 (COVID-19) Exposure in Travel-associated or Community Settings.) Close contacts should also follow these recommendations: ??? Make sure that you understand and can help the patient follow their healthcare provider's instructions for medication(s) and care. You should help the patient with basic needs in the home and provide support for getting groceries, prescriptions, and other personal needs. ??? Monitor the patient's symptoms. If the patient is getting sicker, call his or her healthcare provider and tell them that the patient has laboratory- confirmed COVID-19. This will help the healthcare provider's office take steps to keep other people in the office or waiting room from getting infected. Ask the healthcare provider to call the local or [facility] health department for additional guidance. If the patient has a medical emergency and you need to call 911, notify the dispatch personnel that the patient has, or is being evaluated for COVID-19. ??? Household members should stay in another room or be from the patient as much as possible. Household members should use a separate bedroom and bathroom, if available. ??? Prohibit visitors who do not have an essential need to be in the home. ??? Household members should care for any pets in the home. Do not handle pets or other animals while sick. For more information, see COVID-19 and Animals. ??? Make sure that shared spaces in the home have good air flow, such as by an air conditioner or an opened window, weather permitting. ??? Perform hand hygiene frequently. Wash your hands often with soap and water for at least 20 seconds or use an alcohol-based hand collections and archives director that contains 60 to 95% alcohol, covering all surfaces ofyour hands and rubbing them together until they feel dry. Soap and water should be used preferentially if hands are visibly dirty. ??? Avoid touching your eyes, nose, and mouth with unwashed hands. ??? The patient should wear a facemask when you are around other people. If the patient is not ableto wear a facemask (for example, because it causes trouble breathing), you, as the caregiver, should wear a mask when you are in the same room as the patient. ??? Wear a disposable facemask and gloves when you touch or have contact with the patient's blood, stool, or body fluids, such as saliva, sputum, nasal mucus, vomit, urine. o Throw out disposable facemasks and gloves after using them. Do not reuse. o When removing personal protective equipment, first remove and dispose of gloves. Then, immediately clean your hands with soap and water or alcohol-based hand collections and archives director. Next, remove and dispose of facemask, and immediately clean your hands again with soap and water or alcohol-based hand collections and archives director. ??? Avoid sharing household items with the patient. You should not share dishes, drinking glasses, cups, eating utensils, towels, bedding, or other items. After the patient uses these items, you should wash them thoroughly (see below ???Wash laundry thoroughly?? ). ??? Clean all ???high-touch?? surfaces, such as counters, tabletops, doorknobs, bathroom fixtures,toilets, phones, keyboards, tablets, and bedside tables, every day. Also, clean any surfaces that may have blood, stool, or body fluids on them. o Use a household cleaning spray or wipe, according to the label instructions. Labels contain instructions for safe and effective use of the cleaning product including precautions you should take when applying the product, such as wearing gloves and making sure you have good ventilation during use of the product. ??? Wash laundry thoroughly. o Immediately remove and wash clothes or bedding that have blood, stool, or body fluids on them. o Wear disposable gloves while handling soiled items and keep soiled items away from your body. Clean your hands (with soap and water or an alcohol-based hand collections and archives director) immediately after removing your gloves. o Read and follow directions on labels of laundry or clothing items and detergent. In general, using a normal laundry detergent according to washing machine instructions and dry thoroughly using the warmest temperatures recommended on the clothing label. ??? Place all used disposable gloves, facemasks, and other contaminated items in a lined container before disposing of them with other household waste. Clean your hands (with soap and water or an alcohol-based hand collections and archives director) immediately after handling these items. Soap and water should be used preferentially if hands are visibly dirty. ??? Discuss any additional questions with your state or local health department or healthcare provider. Check available hours when contacting your local health department. documented in this encounter Plan of Treatment Not on file documented as of this encounter Procedures Procedure Name Priority Date/Time Associated Diagnosis Comments 2019 NOVEL CORONAVIRUS (COVID-19) PCR DETECTION Routine 02/15/2020 4:57 PM CDT Exposure to COVID-19 virus documented in this encounter Results * (ABNORMAL) 2019 NOVEL CORONAVIRUS (COVID-19) PCR DETECTION (02/15/2020 4:57 PM CDT) COVID-19 PCR DETECTED( A) Not Detected 02/16/2020 7:14 AM CDT [facility] [employer] [place] [facility] PERFORMING LAB [facility] 02/16/2020 7:14 AM CDT [facility] [employer] [facility] Upper Respiratory ENTIRE NASOPHARYNX / Unknown Collection / Unknown 02/15/2020 4:57 PM CDT 02/15/2020 8:16 PM CDT Narrative [facility] - 02/16/2020 7:14 AM CDT This test has been authorized by the FDA under an Emergency Use Authorization for use by authorized laboratories.?? This test has been validated in accordance with the FDA's guidance regarding Coronavirus Disease-2019 testing.?? Optimum specimen types and timing for peak viral levels during infection have not been determined.?? A negative RT-PCR result does not rule out infection with the 2019-Novel Coronavirus. Suzy Ulloa MD MICROBIOLOGY - GEN ERAL ORDERABLES [facility] [employer] [facility] CLIA# [id number] [facility] [place] [id number] documented in this encounter Visit Diagnoses Diagnosis Exposure to COVID-19 virus- Primary documented in this encounter
--- OUTSIDE RECORDS SUMMARY | 2024-08-16 09:45 | XMS_ITS | Encounter Summary ---
Author Organization [facility] Address [address] [place] [address] Care Team Providers Care Oracle Ebs Consultant Name Role Phone Unavailable Primary Care Provider Unavailabl e Encounter Details Date Type Department Care Team (Late st Contact Info) Description 02/19/2020 Digital Self COVID-1 9 Monitoring [facility] ABSTRACTION [...]
--- OUTSIDE RECORDS SUMMARY | 2024-08-16 09:45 | XMS_ITS | Encounter Summary ---
Author Organization [facility] Address [address] [place] [address] Care Team Providers Care Senior Adults Director Name Role Phone Unavailable Primary Care Provider Unavailabl e Encounter Details Date Type Department Care Team (Late st Contact Info) Description 02/17/2020 Telephone [facility] [id number] [place] [id number] Edith Smith RN Social History Tobacco Use Types Packs/Day Years [...] encounter Miscellaneous Notes * Telephone Encounter - Edith Smith RN - 02/17/2020 11:56 AM CDT [facility] Interaction Note: Service Line: COVID Chief Complaint: cough Assessment: Patient was tested for COVID after being exposed by to a co-worker who was positive. Pt reports shehad a RAMIREZ and sinus congestion on Friday. She had chest tightness on Friday night. She denies chest tightness today. She admits to mild SOB with activity, it resolves with rest. Pt developed a cough last night. Non- productive. Pt is speaking in clear and complete sentences with ease. Plan: Encouraged patient to rest and hydrate. Pt will treat symptoms with OTC medication, Tylenol and Motrin. Pt will report any new or worsening symptoms promptly. Visit was completed by: Phone Edith Smith RN Covid Follow up. documented in this encounter Plan of Treatment Not on file documented as of this encounter Visit Diagnoses Not on filedocumented in this encounter Additional Health Concerns Infection Onset Date Last Indicated Resolved Time COVID-19 02/15/2020 02/15/2020 03/16/2020 1:16 AM CDT documented as of this encounter
--- OUTSIDE RECORDS SUMMARY | 2024-08-16 09:45 | XMS_ITS | Encounter Summary ---
Author Organization [facility] Address [address] [place]: Epic Prelude [place] [address] Care Team Providers Care Logging Shovel Operator Name Role Phone Unavailable Primary Care Provider Unavailabl e Encounter Details Date Type Department Care Team (Latest Contact Info) Description 02/15/2020 Travel Social History Tobacco Use Types Packs/Day [...]
--- OUTSIDE RECORDS SUMMARY | 2024-08-16 09:45 | XMS_ITS | Encounter Summary ---
Author Organization [facility] Address [address] [place] [address] Care Team Providers Care Roving Inspector Name Role Phone Unavailable Primary Care Provider Unavailabl e Reason for Referral * Eval and Treat (Urgent) - Closed Specialty Diagnoses / Procedures Referred By Chinmay barboza Referred To Contact Diagnoses COVID-19 virus infection Brenna Samson FNP [address] [place] [address] Referral ID Status Reason Start Date Expiration Date V isits Requested Visits Authorized [id number] Closed Performing Dept To Review 02/16/2020 02/15/2021 1 1 Encounter Details Date Type Department Care Team (Late st Contact Info) Description 02/16/2020 Orders Only [address] [place] [id number] Brenna Samson FNP [address] [place] [address] COVID-19 virus infection (Primary Dx) Social History Tobacco Use Types [...] as of this encounter Plan of Treatment Scheduled Referrals Name Type Priority Associated Diagnoses Order Schedule AMB REFERRAL TO [facility] MONITORING PROGRAM Outpatient Referral Routine COVID-19 virus infection Ordered: 02/16/2020 documented as of this encounter Visit Diagnoses Diagnosis COVID-19 virus infection- Primary documented in this encounter Additional Health Concerns Infection Onset Date Last Indicated Resolved Time COVID-19 02/15/2020 02/15/2020 03/16/2020 1:16 AM CDT documented as of this encounter
--- OUTSIDE RECORDS SUMMARY | 2024-08-16 09:45 | XMS_ITS | Encounter Summary ---
Author Organization [facility] Address [address] [place] [address] Care Team Providers Care Carpet Cutter Name Role Phone Unavailable Primary Care Provider [...]
--- OUTSIDE RECORDS SUMMARY | 2024-08-16 09:45 | XMS_ITS | Encounter Summary ---
Author Organization [facility] Address [address] [place] [address] Care Team Providers Care Fiberglass Boat Maker Name Role Phone Unavailable Primary Care [...]
== END 2024-08-10 08:48 | disposition home or self-care (01) ==
PROVIDERS: PCP Nurse Practitioner Family; Visit Provider Surgery
PROC: 0DJD8ZZ Inspection of Lower Intestinal Tract, Via Natural or Artificial Opening Endoscopic (ICD-10-PCS; CPT 45378; principal; 2024-08-10 08:30)
DX: Z12.11 Encounter for screening for malignant neoplasm of colon (principal); D12.5 Benign neoplasm of sigmoid colon; I10 Essential (primary) hypertension; K21.9 Gastro-esophageal reflux disease without esophagitis; K58.1 Irritable bowel syndrome with constipation; E55.9 Vitamin D deficiency, unspecified; K59.09 Other constipation; Z79.82 Long term (current) use of aspirin; Z98.890 Other specified postprocedural states; Z82.49 Family history of ischemic heart disease and other diseases of the circulatory system
CPT/HCPCS: 45385; 88305; J2003; J2704; J7120

== ENCOUNTER 2025-06-17 16:02 | Outpatient (CLI) | payer BC, SELFPAY ==
--- NOTE | ~2025-06-17 | MR_ITS ---
EXAMINATION: MR knee RT wo con DATE: 06/17/2025 16:33 INDICATION: Medial right knee pain, weakness and catching TECHNIQUE: Magnetic resonance imaging (MRI) of the right knee was performed without intravenous contrast. Sequences included coronal PD-weighted FSE, coronal PD-weighted FS FSE, sagittal T2-weighted FSE, sagittal PD-weighted FS FSE and axial PD weighted fat saturated FSE. COMPARISON: None. FINDINGS: Medial compartment: Medial meniscus is normal. There is deep chondral ulceration along the medial half of the anterior weightbearing medial femoral condyle overlying what appears to be an old healed osteochondral lesion. There is a deep small chondral flap tear along the medial margin of the region of deep chondral ulceration with linear fluid signal along the bone chondral interface extending approximately 4 mm posteriorly and 3 mm medially. There is a shallow chondral ulceration along the medial side of the medial tibial plateau with superimposed deep chondral fissure with small focus of underlying subcutaneous articular edema-like signal change at the junction of the central to anterior thirds of the medial tibial plateau. Lateral compartment: Lateral meniscus is normal. Small partial-thickness chondral fissure without degenerative subchondral changes along the anteromedial aspect lateral tibial plateau along the shoulder the intercondylar eminence. Remained of the articular cartilage thinning lateral compartment is normal. Patellofemoral compartment: Shallow chondral fissure along the medial aspect of the medial patellar facet. Remaining patellofemoral cartilage is normal. Ligaments and tendons: Anterior and posterior cruciate ligaments are normal. The medial collateral ligament and fibular collateral ligament complex are normal. The extensor mechanism is normal. The visualized medial and lateral hamstring tendons as well as the iliotibial band are normal. There is approximately 2.5 cm x 6 x 4 mm lenticular fluid collection within the plantaris tendon which could relate to either a partial tear or very long caudal extension of a Palomo's cyst. Fluid: Physiologic amount of fluid in the joint space. No loose osteochondral bodies identified. Osseous/other: No fracture or pathologic marrow replacing process. IMPRESSION: 1. 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 2. Minimal lateral and patellofemoral osteoarthritis with small partial- thickness chondral fissures. 3. Small thin lenticular fluid collection within the proximal plantaris tendon which could be related to either a partial tear or caudal extension of a Palomo's cyst. Reviewed, dictated and finalized at location A. [facility] CONTINGENTS IMPRESSION: 1. 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 2. Minimal lateral and patellofemoral osteoarthritis with small partial-thickne ss chondral fissures. 3. Small thin lenticular fluid collection within the proximal plantaris tendon which could be related to either a partial tear or caudal extension of a Palomo' s cyst.
== END 2025-06-17 16:03 | disposition home or self-care (01) ==
LOC: MICIMG 16:04
PROVIDERS: PCP Nurse Practitioner Family; Visit Provider Orthopaedic Surgery
DX: M95.8 Other specified acquired deformities of musculoskeletal system (principal); M17.11 Unilateral primary osteoarthritis, right knee
CPT/HCPCS: 73721